=== PATIENT | female | born 1975 | race Caucasian/White ===

== ENCOUNTER → 2017-10-05 10:50 | Outpatient (REF) | payer BC, SELFPAY ==
[2017-10-06 17:25] LABS: Total Fat/24 Hr 9 g/24 h (2 - 7)
[2017-10-13 03:26] LABS: Pancreatic Elastase, F >500 mcg/g
== END ==
LOC: LBN 10:50
PROVIDERS: PCP Nurse Practitioner Family; Visit Provider Nurse Practitioner Family
DX: R19.5 Other fecal abnormalities (principal)
CPT/HCPCS: 82710

== ENCOUNTER 2017-10-15 15:30 | Outpatient (RCR) | payer BC, SELFPAY ==
--- NOTE | 2017-10-10 13:10 | IE_ITS ---
Date: 10/10/17 Referring: Daisha Benton MD M.D. Diagnosis: (R) leg pain P.T. 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 SUBJECTIVE: History of Present Illness: Reena complains of (R) lateral lower leg pain occurring with running and post running. Otherwise, all functional activities and movements are WNL, and non symptom provoking. Symptoms have been occurring for about 3-4 weeks, she does not recall any traumatic onset. She took a two week break from running, but upon return her symptoms immediately presented. She explains pain as an excruciating pain along the (R) lateral lower leg with running only for a few hours post running, and then dissipates. Character of pain is described as a deep ache at times, deep inside of her leg. She runs up to 3 miles at a time, she does question if she has a leg length discrepancy, she always noticed that she had one pant leg a little bit shorter than the other , and she wonders if this can be contributing. Pain Ratin-7/10 with running otherwise 0/10. Pain Location: (R) lower lateral leg along the peroneal region. Prior Level of Function: WNL Current Level of Function: WNL with the exception of pain with running activity. 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 Comorbidities: Anxiety, hx of a (R) fx femur 1985 as a child. Falls in the last year: __X__ No ____Yes - How many? ____ - (if over 2, balance SM needs to be completed) Reported hospitalizations in the last year - __X__ No ____ Yes - Dates of admission/reason: Medications: Flagyl and Klonopin PRN Quality of Life: __X__ Good Standardized Measures: LEFS score: __33% Disability__ OBJECTIVE: Posture: In standing-has elevation of the ilium compared to the (L) with mild excessive (R) toe out compared to the (L). Compensatory (R) knee flexion to accommodate to ilium asymmetry. Non weightbearing elevation of the (R) malleoli , knee and ASIS. Post tx she had symmetry in non weightbearing and weightbearing position. Otherwise no obvious postural deformities. Observation: (behavior, atrophy, skin color, etc.) Unremarkable. Gait: WNL, toe and heel walk WNL Palpation: Non tender through the lumbopelvic femoral region or the (R) LE throughout any structures with focus of lateral leg. Edema: None Girth measurements: Symmetrical throughout LE's upon visual observation. ROM: (B) ankles and knees are WNL, non irritable. (R) hip IR 30* ER 60* Flexion 130* Abduction 30* Extension 5* (L) hip IR 45*/50* ER 60* Hip flexion 130* Abduction 30-40* Extension 10* Lumbar spine WNL throughout and no pain and non symptomatic Strength: Grossly 5/5 throughout (B) LEs with the exception of (R) hip IR, and ER at a 4+/5 compared to the (L) with a 5/5 with postural religious HRUSKA testing. She demonstrates (L) side lying level 1, (R) side lying level 1, (L) side lying level 2, with visual struggle with (R) IR and adduction. Patient also appreciates this. She also looses core control in this position. (L) glute 4/5, (R) is 5/5. Neuro: WNL LE screen. Balance: WNL Special Tests: SLR R 70 degrees, R 90 degrees due to hamstring drawing, (-) SI gapping, squish, (-) peroneal Tinel's. Treatment: IE: X [id number] Patient Education: Develop and review HEP as discussed below. X Neuro Re-education - ([id number]): Due to findings of HRUSKA indicating weakness of R adductor, internal rotators and L glut proceed with neuro re-ed facilitation with following exercises: 1: Hook lying, postural religious L leg shift for lengthening of L side, shortening of the R to facilitate L glut med, and medial hamstring. 2: R sidelying, L clam for glut med facilitation. 3: R sidelying reverse clams R adductor and IR facilitation. These exercises are written up for patient (see copy scanned EMR) Direct treatment time: 65 mins Total treatment time: 65 mins ASSESSMENT: Patient is a 42-year-old female, referred for PT services with the diagnosis of R leg pain. Patient presents with clinical signs and symptoms consistent with myokinematic instability/dysfunction of the lumbopelvic femoral region, particularly with poor facilitation of R adductor, internal rotation and L glut allowing for biomechanical strain to the R peroneals with running activities, as demonstrated by the following impairment level findings: Poor body awareness of her intrinsic core musculature, weakness of her R adductor, medial hamstring and L glut contributing to femoral, pelvic malalignment and compensatory leg length discrepancy. Impairments are contributing to the following functional limitations:Pain with running due to over facilitation of peroneals and poor biomechanical malalignment through the R LE. Patient is assessed as: __x__ Low 97366 ____ Moderate 27671 ____ High 51999 complexity, based on the following: History: (list): None See comorbidities and social history. Examination: (list): X See above for functional limitations and impairments. Presentation: Stable . X Evolving Unstable Decision-Making: Low complexity X Moderate complexity High complexity % Disability based on LEFS 33% __x__ Patient requires skilled PT intervention to remediate the above functional limitations to return to: __x__ Premorbid level of function Prognosis: ____ Excellent __x__ Good ____ Fair ____ Poor STG: __4__ weeks. 1: Patient able to run up to 3 miles without pain exceeding a 3/10. LTG: __8__ weeks. 1: Return to premorbid level of function. PLAN: Patient to be seen 2 x per week, for 8 weeks, weaning frequency as patient develops independent performance of her myokinematic strengthening program, and has symptom reduction. Treatment to include: Neuromuscular re-education for myokinematic lumbopelvic strengthening for primary facilitation of R adductors, medial hamstring and L glut. Utilization of heel lift if she fails to myokinematic efforts. Manual therapy for R posterior capsule stretching, and hamstring stretching on the R side as appropriate to assist with symmetry of the pelvis. Thank you for this referral. Please do not hesitate to contact me with any questions or concerns regarding this patient's plan of care.
--- NOTE | 2017-10-15 11:22 | PTTR_ITS ---
DATE: 10/15/17 OBJECTIVE: Therapeutic procedures ([id number]).Todays session consisted of pt completing postural amish exercises with focus on (L) glute strengthening and (R) adductor and medial hamstring strengthening. Please see flow sheet for specifics. I also checked pt alignment which before hand was seemed fairly aligned but after completing exercises was some what off so I completed the figure four stretching and that seemed to help pt be a bit more into alignment. Direct treatment time: 20 minutes Total treatment time: 20 minutes
== END 2017-10-19 23:59 | disposition home or self-care (01) ==
LOC: PT 15:30
PROVIDERS: PCP Nurse Practitioner Family; Referring Provider Family Medicine; Visit Provider Family Medicine
DX: M79.651 Pain in right thigh (principal); M79.89 Other specified soft tissue disorders
CPT/HCPCS: 97110; 97112; 97161

== ENCOUNTER 2019-02-04 02:32 | Outpatient (CLI) | payer BC, SELFPAY ==
--- NOTE | 2019-02-04 16:39 | DI.MAMMO_ITS ---
EXAM: MG MAMMO SCREENING CLINICAL HISTORY: SCREENING Z12.39, FAMILY HX BREAST CANCER Z80.3. TECHNIQUE: Full field digital CC and MLO mammographic images were obtained with 3D tomosynthesis and utilizing computer aided detection (CAD). COMPARISON: 2014 AND 2016 FINDINGS: Breast Density - Category D - Extremely dense Masses/Architectural Distortion: None seen. Microcalcifications: No suspicious pleomorphic-type calcifications are seen. Skin Thickening/Nipple Retraction: None. Axilla: Unremarkable. IMPRESSION: 1. BI-RADS category 1, negative. No significant interval change with no specific features of maligna ncy noted. 2. Unless there is more urgent need, screening mammography is recommended, as per [employer] guidelines. BI-RADS Cat 1 - Negative Breast Density - Category D - Extremely dense The mammogram demonstrates the patient's breast tissue is dense. Dense breast tissue is very common a nd is not abnormal but dense breast tissue can make it harder to find cancer on a mammogram. Also, de nse breast tissue may increase their breast cancer risk. This information about the result of the [facility] mogram report was provided to the patient to raise their awareness. Use this report when you speak wi th the patient about their risks for breast cancer, which includes their family history. At that time , you may recommend for more screening tests (Ultrasound or MRI) as they might be useful based on the ir risk. A negative radiographic report should not delay biopsy if a dominant or clinically suspicious mass is present. Up to ten percent of cancers are not identified on mammography. A negative report may reinforce clinical impression. Adenosis and dense breasts may obscure an underlying neoplasm. False positive reports average 6 to 10%. A negative radiographic report should not delay biopsy if a dominant or clinically suspicious mass is present. Up to ten percent of cancers are not identified on mammography. A negative report may reinforce clinical impression. Adenosis and dense breasts may obscure an underlying neoplasm. False positive reports average 6 to 10%. Patient will receive a letter notifying them of these results.
== END 2019-02-04 02:52 ==
PROVIDERS: PCP Nurse Practitioner Family; Visit Provider Nurse Practitioner Family
DX: Z12.31 Encounter for screening mammogram for malignant neoplasm of breast (principal); Z80.3 Family history of malignant neoplasm of breast
CPT/HCPCS: 77063; 77067

== ENCOUNTER 2019-02-21 10:12 | Outpatient (REF) | payer BC, SELFPAY ==
[2019-02-21 13:17] LABS: C-Reactive Protein < 0.05 mg/dL (0.0-0.3)
[2019-02-21 15:19] LABS: ESR 7 mm/hr (0-20)
[2019-02-24 10:11] LABS: Cyclic Citrullinated Peptide <2.5 U/mL (<5.0)
[2019-02-24 15:15] LABS: ANA Interpretation Negative (Negative)
== END 2019-02-21 10:32 ==
LOC: NCHCN 10:12
PROVIDERS: PCP Nurse Practitioner Family; Visit Provider Nurse Practitioner Family
DX: M25.561 Pain in right knee (principal); M54.2 Cervicalgia; M54.5 Low back pain; K30 Functional dyspepsia; I95.9 Hypotension, unspecified; R42 Dizziness and giddiness
CPT/HCPCS: 85652; 86200; 86038; 86140; 86431

== ENCOUNTER 2019-02-24 01:28 | Outpatient (CLI) | payer BC, SELFPAY ==
--- NOTE | 2019-02-24 15:38 | DI.US_ITS ---
EXAM: US PELVIS TRANSVAGINAL CLINICAL HISTORY: PT REPORTS BLEEDING BETWEEN PERIODS, HX CERVICAL POLYPS TECHNIQUE: Ultrasound performed using standard protocol. Transabdominal and transvaginal exams wer e performed. COMPARISON: No exams were available for comparison FINDINGS: The uterus measures 8.6 x 3.9 x 5.3 cm. There are a few endometrial calcifications superiorly. Th e endometrial stripe measures 5 millimeters in thickness. No fluid is seen within the endometrial c avity. No irregularity is visible. No fibroids are seen. Small follicles are noted on both ovaries . There is a trace amount of free fluid in the cul-de-sac, likely physiologic. The kidneys are unre markable. IMPRESSION: Normal endometrial thickness. Endometrial calcifications.
== END 2019-02-24 01:48 ==
PROVIDERS: PCP Nurse Practitioner Family; Visit Provider Nurse Practitioner Women's Health
DX: N92.5 Other specified irregular menstruation (principal); N85.8 Other specified noninflammatory disorders of uterus
CPT/HCPCS: 76830; 76856

== ENCOUNTER 2019-03-24 08:24 | Outpatient (CLI) | payer BC, SELFPAY ==
--- NOTE | 2019-03-24 08:35 | DI.RAD_ITS ---
EXAM: XR KNEE RT 3V AP,LAT,KARLA CLINICAL HISTORY: R knee pain. TECHNIQUE: 2D digital imaging was performed. COMPARISON: No exams were available for comparison FINDINGS: BONES: No acute fracture is present. No bony destructive lesion is seen. JOINTS: The knee is normally aligned. No joint effusion is seen. SOFT TISSUE: Normal. IMPRESSION: Unremarkable radiographs of the right knee.
== END 2019-03-24 08:44 ==
PROVIDERS: PCP Nurse Practitioner Family; Visit Provider Physician Assistant
DX: M25.561 Pain in right knee (principal)
CPT/HCPCS: 73562

== ENCOUNTER 2019-09-10 02:24 | Outpatient (CLI) | payer BC, SELFPAY ==
--- NOTE | 2019-09-10 06:45 | DI.MRI_ITS ---
EXAM: MR LOWER JOINT RT WO CLINICAL HISTORY: knee PAIN, INTERNAL DERANGEMENT, M23.91. TECHNIQUE: Multiplanar multisequence MRI was performed. COMPARISON: CR XR KNEE RT 3V AP,LAT,KARLA from 03/24/2019 FINDINGS: BONES: There is no fracture or contusion pattern. JOINTS: There is hyperintense signal seen in the articular cartilage of the patella with hyperintense signal seen in the underlying subchondral bone. Small amount of fluid within the joint space. TENDONS: Extensor mechanism: Unremarkable. Medial retinaculum: Unremarkable. Lateral retinaculum: Unremarkable. Popliteus: Unremarkable. MUSCLES: Unremarkable. MENISCI: The medial meniscus is unremarkable. The lateral meniscus is unremarkable. SOFT TISSUES: Unremarkable. LIGAMENTS: Anterior Cruciate: Unremarkable. Posterior Cruciate: Unremarkable. Medial Collateral:Unremarkable. Lateral Collateral: Unremarkable. OTHER: IMPRESSION: 1. Findings of chondromalacia patella. 2. No evidence of a meniscal or ligament tear. DATA REPOSITORY:
== END 2019-09-10 02:44 ==
PROVIDERS: PCP Nurse Practitioner Family; Visit Provider Student in an Organized Health Care Education/Training Program
DX: M23.91 Unspecified internal derangement of right knee (principal); M25.561 Pain in right knee; M22.41 Chondromalacia patellae, right knee
CPT/HCPCS: 73721

== ENCOUNTER 2019-11-21 04:40 | Outpatient (CLI) | payer BC, SELFPAY ==
--- NOTE | 2019-11-21 | DI.MRI_ITS ---
EXAM: MR BRAIN WO/W CLINICAL HISTORY: MASS OF SKULL,M89.8X8. TECHNIQUE: Multiplanar multisequence MRI of the brain was performed. Thin T1 and fat-suppressed T2 axial, coronal and sagittal sequences as well as pre and post gadolinium fat-suppressed T1 weighted i mages were performed through the frontal region for evaluation of the previously noted skull lesion. CONTRAST MATERIAL: IV Contrast: 12 ML of Dotarem contrast administered. COMPARISON: CT HEAD-WITH/WITHOUT CONTRAST from 10/03/2019 FINDINGS: VENTRICLES AND EXTRA AXIAL SPACES: Normal in size and morphology for the patient's age. HEMORRHAGE: None. CEREBRAL PARENCHYMA: No focus of restricted diffusion to suggest acute infarct. No space-occupying le feliciano identified. No white matter changes. MIDLINE SHIFT: None. BRAINSTEM/CEREBELLUM: Normal. CALVARIUM: There is a 10 x 5 x 8 millimeter circumscribed lesion in the left frontal skull correspon ding to the lesion seen on the previous CT. It is intermediate signal on T1 weighted images and high signal on T2 weighted images. There is slightly heterogeneous signal within the lesion. There is e nhancement following IV gadolinium. ENHANCEMENT: No suspicious enhancement identified in the brain or meninges.. VISUALIZED PARANASAL SINUSES/MASTOIDS: Clear. OTHER FINDINGS: Orbits and pituitary within normal limits. Vascular flow voids are intact. IMPRESSION: 10 millimeter circumscribed enhancing lesion in the left frontal skull could represent a hemangioma, histiocytosis, plasmacytoma or metastatic lesion. DATA REPOSITORY:
[2019-11-21] MEDS: Normal Saline Flush 10 ML SYR IVP (10:05)
[2019-11-21] MEDS: Gadoterate meglumine 20 ML VIAL 12 ML IVP (10:07)
== END 2019-11-21 05:00 ==
PROVIDERS: PCP Nurse Practitioner Family; Visit Provider Neurological Surgery
DX: R22.0 Localized swelling, mass and lump, head (principal)
CPT/HCPCS: 70553

== ENCOUNTER 2020-02-14 15:07 | Emergency (ER) | payer BC, SELFPAY ==
[2020-02-14 15:12] VITALS: BP 106/82; PULSE 60; RESP 16; TEMP 36.5; O2SAT 100
--- NOTE | 2020-02-14 15:32 | ED.GENADUL_ITS ---
Discharge Plan Disposition Patient Disposition: HOME Condition: Good Discharge Details Clinical Impression: Abdominal discomfort Primary Care Provider: Tanna Muñiz ED Provider: Palak Norris Home Meds and New Rx's Prescriptions: New ondansetron 4 mg tablet,disintegrating 4 mg PO Q6H PRN (Reason: nausea and vomiting) Qty: 10 RF: 0 Continued clonazepam [Klonopin] 0.5 mg tablet 0.5 mg PO DAILY PRNRF: 0 Discharge Instructions Instructions: Abdominal Pain (ED) Additional Instructions: Your labs are reassuring today. Please encourage water intake. Please continue to walk frequently. You may continue with Gas-X as needed for symptomatic management. If you have any recurrence of your nausea and/or vomiting you may use the Zofran as prescribed. 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 If you develop fever/chills, increased pain, inability stay hydrated or the new/worsening symptoms please seek care urgently once again. 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 is slightly worse than her baseline and that began last night. She currently denies any nausea. Clinically she appears well, nontoxic. Abdomen is soft, nonsurgical throughout. She does report subjective discomfort minimally throughout. There is no guarding, rigidity or rebound. She is afebrile. Differential includes but not excluded to colitis, appendicitis, UTI, , biliary colic, pancreatitis, exacerbation of her chronic symptoms, etc. Will obtain IV access, give IV fluids, obtain routine laboratory values and reassess. If laboratory values are abnormal then potential CT imaging could be pursued however reflexively she does not have a central abdominal examination. I am signing this patient out to my colleague JASON Norris at 1600. Patient has been in the ER for approximately 45 minutes. They are establishing IV access now. IV fluid and laboratory values have not been completed at time of discharge. Medical Records Medical records reviewed: Yes I reviewed the patient's medical records. <JASON Reynaga - Last Filed: 02/14/20 16:56> Care transition myself from Augusto Segovia PA-C. Please see his initial note regarding presentation and exam and history. In brief, patient is a pleasant 45-year-old female has a history of bacterial overgrowth of her gut. 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 Presents today with flare of her symptoms. She reports that she has had multiple of these historically but this 1 seems to be worse than they have previously. No focal pain. No change in bowel habits. Has had some intermittent nausea but no vomiting. Labs reviewed. No significant abnormality. Discussed this with the patient. Patient I discussed the potential diagnoses. As this does seem to be very ester lar to when she has had flares associated with her bacterial overgrowth historically, this is likely the underlying diagnosis is again. I do not see any evidence to suggest a surgical abdomen. No evidence to suggest appendicitis, cholecystitis, diverticulitis, lipase is normal. Patient has been having normal bowel movements, history is not suggestive of obstruction. Patient reports that she can intermittently have nausea, will prescribe Zofran to be used as needed at home. She does not want any nausea medication now. We will give IV Toradol prior to her departure to help with some of her abdominal discomfort. She reports that she has been using simethicone to help with symptomatic management and states this is can help some degree. Patient discussed return precautions. She will contact the gastroenterology on Sunday to see if she can move her appointment up or get on the waiting list. Return precautions were discussed. All of her questions and concerns were addressed and she is in agreement this plan. HPI <JASON Merino - Last Filed: 02/15/20 08:06> General Mode of arrival: ambulatory . Date/Time Provider Initiated Documentation: 02/14/20 15:22 . Limitations to Documentation: no limitations . Information obtained by: patient . 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 She states that she occasionally has abdominal bloating, feels gassy, alternates between diarrhea and/or constipation. Today she reports that her pain just seems to be slightly worse and different in nature. This began last night and is associate with mild nausea. She feels as though it is slightly worse after eating. She denies any fever, recent travel, bad food exposure, sick contacts, chest pain, shortness of breath, vomiting, black tarry stools or bright red blood in her stools. Denies vaginal bleeding or discharge, dysuria or hematuria. She did try [id number] medication without relief of her symptoms. She denies previous abdominal surgeries. She reports that she had a normal bowel movement this morning. Related Data Home Medications Medication Instructions Recorded Confirmed clonazepam 0.5 mg tablet 0.5 mg PO DAILY PRN 09/25/19 02/14/20 ondansetron 4 mg PO Q6H PRN #10 tab 02/14/20 Previous Rx's Medication Instructions Recorded ondansetron 4 mg PO Q6H PRN #10 tab 02/14/20 Allergies Allergy/AdvReac Type Severity Reaction Status Date / Time No Known Allergies Allergy Verified 09/25/19 10:02 General Stated Complaint: Abd Prob SANJUANA: 3 Review of Systems <JASON Merino - Last Filed: 02/15/20 08:06> Constitutional Constitutional: Denies fatigue, Denies fever(s) and Denies headache(s) ENT Ears, Nose, Mouth, and Throat: Denies headache(s) and Denies neck pain Cardiovascular Cardiovascular: Denies chest pain and Denies dyspnea Respiratory Respiratory: Denies cough and Denies dyspnea Gastrointestinal Gastrointestinal: Reports abdominal pain, Denies melena, Denies hematochezia, Reports constipation, Reports diarrhea, Reports nausea and Denies vomiting Genitourinary Genitourinary: Denies abnormal vaginal bleeding, Denies hematuria, Denies dysuria and Denies vaginal discharge Musculoskeletal Musculoskeletal: Reports back pain (Typically associated with her abdominal pain) and Denies neck pain Integumentary/Breasts Skin/Breast: Denies rash Neurologic Neurologic: Denies headache(s) Endocrine Endocrine: Denies fatigue PFS <JASON Merino - Last Filed: 02/15/20 08:06> Social History Smoking/Tobacco Use Status: Never Smoking risk assessment performed?: Yes Alcohol Intake: never Drug use: Never Substance use type: does not use Current gender identity: female Do you feel safe at home: Yes Do you feel safe in your relationship?: Yes Exam <JASON Merino - Last Filed: 02/15/20 08:06> Const General: cooperative, healthy appearing, comfortable and no acute distress Orientation: alert and awake [facility] [place] Head: normal to inspection, normocephalic and atraumatic Eyes General: appearance normal, both eyes and all related structures Conjunctivae: conjunctivae normal Sclera: sclerae normal Neck Neck: normal visual inspection, full ROM, no meningeal signs, trachea midline and supple Resp Effort & Inspection: normal respiratory effort and able to speak in complete sentences Auscultation: clear to auscultation bilaterally Cardio Rate: regular rate Rhythm: regular rhythm GI Inspection: normal to inspection Palpation: soft, not firm, no guarding, no pulsatile masses and tender (Diffuse minimal throughout) with no rebound tenderness Auscultation: normal bowel sounds Back/Spine/Pelvis Back: No back tenderness Skin General skin exam: no rashes or lesions noted Neuro General: patient alert, patient awake, moves all extremities and no focal motor deficits Cognition: normal cognition Speech: speech normal Gait: normal gait Motor: muscle tone normal throughout Sensory Exam: no sensory deficits noted Extrem General: normal to inspection and full ROM Psych Appearance: grossly normal Mental Status: mental status grossly normal Course <JASON Merino - Last Filed: 02/15/20 08:06> Vital Signs Vital signs: Vital Signs Temperature 36.5 C 02/14/20 15:12 Pulse 60 02/14/20 15:12 Respiratory Rate 16 02/14/20 15:12 Blood Pressure 106/82 02/14/20 15:12 Pulse Oximetry 100 02/14/20 15:12 Temperature 36.5 C 02/14/20 15:12 Temperature Source Skin 02/14/20 15:12 Pulse 60 02/14/20 15:12 Respiratory Rate 16 02/14/20 15:12 Respiratory Effort 02/14/20 15:17 Blood Pressure 106/82 02/14/20 15:12 Blood Pressure Position Sitting 02/14/20 15:12 Pulse Oximetry 100 02/14/20 15:12 Oxygen Delivery Method Room Air 02/14/20 15:12 Oxygen Flow Rate 0 02/14/20 15:12 Pain Level 8 02/14/20 15:12 Sign Out <JASON Merino - Last Filed: 02/15/20 08:06> Sign Out Data: Sign Out Comment: Currently obtaining IV access, getting IV fluid, pending laboratory values for abdominal pain, nausea, gassy feeling, that is slightly worse than her baseline. This began yesterday. Last updated by Jorge Segovia PA at 02/14/20 15:58
[2020-02-14] MEDS: Normal Saline 1,000 ML 1000 ML IV (15:59)
[2020-02-14 16:01] LABS: Abs Immature Grans 0.02 10^3/uL (0.0-0.06); Absolute Basophil Count 0.03 10^3/uL (0.0-0.2); Absolute Eosinophil Count 0.07 10^3/uL (0.0-0.7); Absolute Lymphocyte Count 1.35 10^3/uL (1.2-3.4); Absolute Monocyte Count 0.76 10^3/uL (0.1-0.8); Absolute Neutrophil Count 6.47 10^3/uL (1.2-6.7); Basophils % 0.3; Eosinophils % 0.8; HCT 38.1 % (36.0-46.0); HGB 12.5 g/dL (11.2-15.7); Immature Grans % 0.2; Lymphocytes % 15.5; MCH 31.3 pg (27.0-33.0); MCHC 32.8 % (32.0-36.0); MCV 95.5 fL (80-95); MPV 11.4 fL (8.0-11.0); Monocytes % 8.7; Neutrophils % 74.5; Nucleated RBC 0 %; Platelet Count 150 10^3/uL (130-400); RBC 3.99 10^6/uL (3.93-5.22); RDW 12.3 % (11.7-14.6)
[2020-02-14 16:09] LABS: Bilirubin Negative (Negative); Blood Negative (Negative); Clarity Clear (Clear); Glucose Negative (Negative); Ketones Negative (Negative); Leukocyte Esterase Negative (Negative); Nitrite Negative (Negative); Urobilinogen 0.2 EU/dL (Up TO 0.2)
[2020-02-14 16:11] LABS: ALT 16 U/L (14-59); AST 11 U/L (15-37); Albumin 3.6 g/dL (3.4-5.0); Alkaline Phosphatase 43 U/L (46-116); Anion Gap 4.4 mmol/L (3-11); BUN 13 mg/dL (7-18); Bilirubin, Total 0.3 mg/dL (0.2-1.0); CO2 29.6 mmol/L (21.0-32.0); CREATININE 0.95 mg/dL (0.55-1.02); Calcium 8.8 mg/dL (8.5-10.1); Chloride 104 mmol/L (98-107); Glucose 112 mg/dL (74-106); Lipase 87 U/L (73-393); Potassium 3.6 mmol/L (3.5-5.1); Sodium 138 mmol/L (136-145); Total Protein 6.7 g/dL (6.4-8.2)
[2020-02-14] MEDS: Ketorolac 30 MG/ML VIAL IVP (16:41)
[2020-02-14 16:53] VITALS: BP 98/61; PULSE 60; RESP 18; TEMP 37.1; O2SAT 100
[2020-02-14] MEDS: Ondansetron 4 MG/2 ML VIAL (16:59)
[2020-02-14 17:05] VITALS: BP 98/61; PULSE 60; RESP 18; TEMP 37.1; O2SAT 100
== END 2020-02-14 17:09 | disposition home or self-care (01) ==
PROVIDERS: Physician Assistant; Emergency Provider Physician Assistant; PCP Nurse Practitioner Family
DX: R10.84 Generalized abdominal pain (principal); Z87.19 Personal history of other diseases of the digestive system; R11.0 Nausea
CPT/HCPCS: 80053; 81025; 83690; 96361; 96374; 99284; 81003; 85025; 99283; J1885; J2405

== ENCOUNTER 2020-03-23 18:38 | Outpatient (CLI) | payer BC, SELFPAY ==
--- NOTE | 2020-03-23 14:15 | DI.RAD_ITS ---
EXAM: XR ABDOMEN FLAT UPRIGHT INDICATION: BLOATING, GAS, CONSTIPATION. COMPARISON: No exams were available for comparison TECHNIQUE: 2D digital imaging was performed. FINDINGS: The visualized lung bases are clear. The bowel gas pattern is nonspecific. No evidence of obstructi on. There is a moderate amount of stool seen throughout the colon. Note is made of an IUD in the pe lvis. No evidence of pneumoperitoneum. IMPRESSION: Moderate amount of retained stool in the colon. No evidence of bowel obstruction. DATA REPOSITORY: RADIATION DOSE DELIVERED:
== END 2020-03-23 18:39 | disposition home or self-care (01) ==
LOC: DI 18:39
PROVIDERS: PCP Nurse Practitioner Family; Visit Provider Internal Medicine Gastroenterology
DX: K59.00 Constipation, unspecified (principal); R14.0 Abdominal distension (gaseous)
CPT/HCPCS: 74019

== ENCOUNTER 2020-03-25 08:19 | Outpatient (REF) | payer BC, SELFPAY ==
[2020-03-26 18:54] LABS: Calprotectin <15.6 mcg/g
[2020-03-26 20:02] LABS: Pancreatic Elastase, F 160 mcg/g
== END 2020-03-25 08:20 | disposition home or self-care (01) ==
LOC: LBN 08:19
PROVIDERS: PCP Nurse Practitioner Family; Visit Provider Internal Medicine Gastroenterology
DX: R10.9 Unspecified abdominal pain (principal); R14.0 Abdominal distension (gaseous); R19.5 Other fecal abnormalities
CPT/HCPCS: 82656; 82710; 83993

== ENCOUNTER 2020-07-22 16:48 | Emergency (ER) | payer BC, SELFPAY ==
[2020-07-22 16:53] VITALS: BP 123/78; PULSE 55; RESP 16; TEMP 36.2; O2SAT 100
--- NOTE | 2020-07-22 17:03 | ED.GENADUL_ITS ---
Discharge Plan Disposition Patient Disposition: HOME Condition: Improving Discharge Details Clinical Impression: Abdominal pain Primary Care Provider: Tanna Muñiz ED Provider: Jorge Segovia Home Meds and New Rx's Prescriptions: Continued clonazepam [Klonopin] 0.5 mg tablet 0.5 mg PO DAILY PRNRF: 0 ondansetron 4 mg tablet,disintegrating 4 mg PO Q6H PRN (Reason: nausea and vomiting) Qty: 10 RF: 0 Discharge Instructions Instructions: Abdominal Pain (ED) Additional Instructions: Laboratory values reveal a slightly elevated white count but otherwise unremarkable for any obvious emergent process. We did discuss CT imaging but with your recent thorough work-up through your GI team, this was declined this evening. Please watch for new or worsening symptoms and return to the ER for any concerns. Please contact your GI specialist tomorrow to discuss your ongoing symptoms and need for outpatient reevaluation. Medical Decision Making 45-year-old female, history of anxiety, small intestine bacterial overgrowth, no previous abdominal surgeries, followed by GI. She reports both recent endoscopy and colonoscopy. She was prescribed 2 antibiotics and antidepressant but has not started them, plans to start them August 02. Reports flareup of her chronic abdominal pain. Clinically she appears well, nontoxic. Discussed options, will obtain IV access, give IV fluids, Zofran, Toradol. Will obtain routine laboratory values and urinalysis. Patient comfortable with this plan. Upon reevaluation patient reports that she is nearly asymptomatic after being medicated. Reports feeling much improved. Laboratory values reveal mild nonspecific leukocytosis of 13.59, electrolytes unremarkable. Creatinine 1.0 with a GFR 59.43. Calcium 8.3, total bili 0.1 AST 13 ALT 16 alk phosphatase 46, albumin 3.6 lipase 53 urinalysis reveals trace ketones otherwise unremarkable. Discussed laboratory values and work-up with patient. Again she feels dramatically better after being medicated. Discussed her mild nonspecific leukocytosis. She is afebrile, appears well, abdomen soft, nonsurgical. CT imaging of the abdomen pelvis offered but at this time declined. Patient reports that she feels well enough for discharge and will follow up with her GI specialty team. Encouraged to return to the ER for new or worsening symptoms. She will contemplate initiating the therapy recommended by her GI team sooner than the . Medical Records Medical records reviewed: Yes I reviewed the patient's medical records. Lab Data Lab results reviewed: Yes I reviewed the patient's lab results. Labs: Laboratory Tests Range/Units 07/22/20 07/22/20 07/22/20 17:30 17:40 17:40 WBC (4.4-10.8) 10^3/uL 13.59 H RBC (3.93-5.22) 10^6/uL 4.28 Hgb (11.2-15.7) g/dL 13.5 Hct (36.0-46.0) % 40.8 MCV (80-95) fL 95.3 H MCH (27.0-33.0) pg 31.5 MCHC (32.0-36.0) % 33.1 RDW (11.7-14.6) % 13.1 Plt Count (130-400) 10^3/uL 158 MPV (8.0-11.0) fL 12.1 H Immature Gran % 0.3 Neutrophils % 73.3 Lymphocytes % 19.5 Monocytes % 5.6 Eosinophils % 1.0 Basophils % 0.3 Nucleated RBC % % 0 Absolute Neutrophils (1.2-6.7) 10^3/uL 9.96 H Absolute Lymphocytes (1.2-3.4) 10^3/uL 2.65 Absolute Monocytes (0.1-0.8) 10^3/uL 0.76 Absolute Eosinophils (0.0-0.7) 10^3/uL 0.14 Absolute Basophils (0.0-0.2) 10^3/uL 0.04 Sodium Cancelled Potassium Cancelled Chloride Cancelled Carbon Dioxide Cancelled Anion Gap Cancelled BUN Cancelled Creatinine Cancelled Estimated GFR/1.73 m2 Cancelled Glucose Cancelled Calcium Cancelled Total Bilirubin Cancelled AST Cancelled ALT Cancelled Alkaline Phosphatase Cancelled Total Protein Cancelled Albumin Cancelled Lipase Cancelled Urine Color (Yellow) Yellow Urine Clarity (Clear) Sl cloudy Urine pH (5-8) 5.5 Ur Specific Mildred (1.005-1.025) 1.020 Urine Protein (Negative) mg/dL Negative Urine Ketones (Negative) mg/dL Trace H Urine Blood (Negative) Negative Urine Nitrite (Negative) Negative Urine Bilirubin (Negative) Negative Urine Urobilinogen (Up TO 0.2) EU/dL 0.2 Ur Leukocyte Esterase (Negative) Negative Urine Glucose (Negative) mg/dL Negative Range/Units 07/22/20 18:13 WBC (4.4-10.8) 10^3/uL RBC (3.93-5.22) 10^6/uL Hgb (11.2-15.7) g/dL Hct (36.0-46.0) % MCV (80-95) fL MCH (27.0-33.0) pg MCHC (32.0-36.0) % RDW (11.7-14.6) % Plt Count (130-400) 10^3/uL MPV (8.0-11.0) fL Immature Gran % Neutrophils % Lymphocytes % Monocytes % Eosinophils % Basophils % Nucleated RBC % % Absolute Neutrophils (1.2-6.7) 10^3/uL Absolute Lymphocytes (1.2-3.4) 10^3/uL Absolute Monocytes (0.1-0.8) 10^3/uL Absolute Eosinophils (0.0-0.7) 10^3/uL Absolute Basophils (0.0-0.2) 10^3/uL Sodium 139 Potassium 3.8 Chloride 104 Carbon Dioxide 27.8 Anion Gap 7.2 BUN 12 Creatinine 1.0 Estimated GFR/1.73 m2 59.43 Glucose 89 Calcium 8.3 L Total Bilirubin 0.5 AST 13 L ALT 16 Alkaline Phosphatase 46 Total Protein 6.6 Albumin 3.6 Lipase 53 Urine Color (Yellow) Urine Clarity (Clear) Urine pH (5-8) Ur Specific Mildred (1.005-1.025) Urine Protein (Negative) mg/dL Urine Ketones (Negative) mg/dL Urine Blood (Negative) Urine Nitrite (Negative) Urine Bilirubin (Negative) Urine Urobilinogen (Up TO 0.2) EU/dL Ur Leukocyte Esterase (Negative) Urine Glucose (Negative) mg/dL HPI General Mode of arrival: ambulatory . Date/Time Provider Initiated Documentation: 07/22/20 16:51 . Limitations to Documentation: no limitations . Information obtained by: patient . HPI Narrative: This is a 45-year-old female who reports history of anxiety, small intestine bacterial overgrowth syndrome, who is being evaluated by a GI specialist. She reports that she has been prescribed 2 antibiotics and an antidepressant however she does not plan to start these until August 02 when she is on vacation. She reports chronic abdominal pain, bloating, nausea but reports that her symptoms are worse than baseline. This occurred this afternoon after eating lunch, tunafish sandwich. She reports the pain is all over, crampy, feeling gassy. She reports the pain is associated with a small amount of radiation to her lower back which is not atypical as well as pain to both of her hips. She denies fever, recent travel, bad food exposure, sick contacts, chest pain, shortness of breath, fever, vomiting, dysuria, hematuria, vaginal bleeding or discharge, diarrhea or constipation. Reports normal bowel movement over the past 24 hours. She reports that this feels typical of her her flareups. She has not taken any medication for symptomatic control. Related Data Home Medications Medication Instructions Recorded Confirmed clonazepam 0.5 mg tablet 0.5 mg PO DAILY PRN 09/25/19 07/22/20 ondansetron 4 mg PO Q6H PRN #10 tab 02/14/20 07/22/20 Previous Rx's Medication Instructions Recorded ondansetron 4 mg PO Q6H PRN #10 tab 02/14/20 Allergies Allergy/AdvReac Type Severity Reaction Status Date / Time No Known Allergies Allergy Verified 07/22/20 17:03 General Stated Complaint: Abd Prob SANJUANA: 3 Review of Systems Constitutional Constitutional: Denies fatigue, Denies fever(s) and Denies headache(s) ENT Ears, Nose, Mouth, and Throat: Denies headache(s) and Denies neck pain Cardiovascular Cardiovascular: Denies chest pain and Denies dyspnea Respiratory Respiratory: Denies cough and Denies dyspnea Gastrointestinal Gastrointestinal: Reports abdominal pain, Reports bloating, Denies constipation, Denies diarrhea, Reports nausea and Denies vomiting Genitourinary Genitourinary: Denies dysuria Musculoskeletal Musculoskeletal: Reports back pain and Denies neck pain Integumentary/Breasts Skin/Breast: Denies erythema and Denies rash Neurologic Neurologic: Denies headache(s) Psychiatric Psychiatric: Reports anxiety Endocrine Endocrine: Denies fatigue [facility] Social History Smoking/Tobacco Use Status: Never Smoking risk assessment performed?: Yes Alcohol Intake: never Drug use: Never Substance use type: does not use Current gender identity: female Do you feel safe at home: Yes Do you feel safe in your relationship?: Yes Exam Const General: cooperative, healthy appearing, comfortable and no acute distress Orientation: alert and awake [facility] Head: normal to inspection, normocephalic and atraumatic Face and sinus: normal facial exam Mouth: moist mucous membranes Eyes General: appearance normal, both eyes and all related structures Conjunctivae: conjunctivae normal Neck Neck: normal visual inspection, full ROM, trachea midline and supple Resp Effort & Inspection: normal respiratory effort and able to speak in complete sentences Auscultation: clear to auscultation bilaterally Cardio Rate: regular rate Rhythm: regular rhythm GI Inspection: normal to inspection Palpation: soft, not firm, no guarding, no pulsatile masses and tender (Diffuse, mild.) with no rebound tenderness Auscultation: normal bowel sounds Back/Spine/Pelvis Back: no CVA tenderness and No back tenderness Skin General skin exam: no rashes or lesions noted Neuro General: patient alert, patient awake, moves all extremities and no focal motor deficits Cognition: normal cognition Speech: speech normal Gait: normal gait Sensory Exam: no sensory deficits noted Psych Appearance: grossly normal Mental Status: mental status grossly normal Course Vital Signs Vital signs: Vital Signs Temperature 36.2 C L 07/22/20 16:53 Pulse 55 L 07/22/20 16:53 Respiratory Rate 16 07/22/20 16:53 Blood Pressure 123/78 07/22/20 16:53 Pulse Oximetry 100 07/22/20 16:53 Temperature 36.2 C L 07/22/20 16:53 Temperature Source Skin 07/22/20 16:53 Pulse 55 L 07/22/20 16:53 Respiratory Rate 16 07/22/20 16:53 Respiratory Effort 07/22/20 16:53 Blood Pressure 123/78 07/22/20 16:53 Blood Pressure Position Sitting 07/22/20 16:53 Pulse Oximetry 100 07/22/20 16:53 Oxygen Delivery Method Room Air 07/22/20 16:53 Oxygen Flow Rate 0 07/22/20 16:53 Pain Level 9 07/22/20 16:53
[2020-07-22 17:36] LABS: Bilirubin Negative (Negative); Blood Negative (Negative); Clarity Sl Cloudy (Clear); Glucose Negative (Negative); Ketones Trace mg/dL (Negative); Leukocyte Esterase Negative (Negative); Nitrite Negative (Negative); Urobilinogen 0.2 EU/dL (Up TO 0.2); pH 5.5 (5-8)
[2020-07-22] MEDS: Ondansetron 4 MG/2 ML VIAL IVP (17:40)
[2020-07-22] MEDS: Ketorolac 30 MG/ML VIAL IVP (17:41)
[2020-07-22] MEDS: Normal Saline 1,000 ML 1000 ML IV (17:41)
[2020-07-22 17:50] LABS: Abs Immature Grans 0.04 10^3/uL (0.0-0.06); Absolute Basophil Count 0.04 10^3/uL (0.0-0.2); Absolute Eosinophil Count 0.14 10^3/uL (0.0-0.7); Absolute Lymphocyte Count 2.65 10^3/uL (1.2-3.4); Absolute Monocyte Count 0.76 10^3/uL (0.1-0.8); Absolute Neutrophil Count 9.96 10^3/uL (1.2-6.7); Basophils % 0.3; HCT 40.8 % (36.0-46.0); HGB 13.5 g/dL (11.2-15.7); Immature Grans % 0.3; Lymphocytes % 19.5; MCH 31.5 pg (27.0-33.0); MCHC 33.1 % (32.0-36.0); MCV 95.3 fL (80-95); MPV 12.1 fL (8.0-11.0); Monocytes % 5.6; Neutrophils % 73.3; Nucleated RBC 0 %; Platelet Count 158 10^3/uL (130-400); RBC 4.28 10^6/uL (3.93-5.22); RDW 13.1 % (11.7-14.6); RDW-SD 46.4 fL; WBC 13.59 10^3/uL (4.4-10.8)
[2020-07-22 18:34] LABS: ALT 16 U/L (14-59); AST 13 U/L (15-37); Albumin 3.6 g/dL (3.4-5.0); Alkaline Phosphatase 46 U/L (46-116); Anion Gap 7.2 mmol/L (3-11); BUN 12 mg/dL (7-18); Bilirubin, Total 0.5 mg/dL (0.2-1.0); CO2 27.8 mmol/L (21.0-32.0); Calcium 8.3 mg/dL (8.5-10.1); Chloride 104 mmol/L (98-107); Estimated GFR 59.43 (mL/min/1.73m2); Glucose 89 mg/dL (74-106); Lipase 53 U/L (73-393); Potassium 3.8 mmol/L (3.5-5.1); Sodium 139 mmol/L (136-145); Total Protein 6.6 g/dL (6.4-8.2)
[2020-07-22 19:32] VITALS: BP 104/64; PULSE 59; TEMP 36.6; O2SAT 98
== END 2020-07-22 19:42 | disposition home or self-care (01) ==
PROVIDERS: Emergency Provider Physician Assistant; PCP Nurse Practitioner Family
DX: R10.9 Unspecified abdominal pain (principal)
CPT/HCPCS: 36415; 80053; 81025; 83690; 96361; 96374; 96375; 99284; 81003; 85025; 99283; J1885; J2405

== ENCOUNTER 2020-08-04 00:41 | Outpatient (CLI) | payer BC, SELFPAY ==
--- NOTE | 2020-08-04 13:20 | DI.MAMMO_ITS ---
Exam(s) MAMMO SCREENING EXAM: MAMMO SCREENING CLINICAL HISTORY: SCREENING, Z12.39. TECHNIQUE: Bilateral full field digital CC and MLO mammographic images were obtained with 3D tomosyn thesis and utilizing computer aided detection (CAD). COMPARISON: Prior mammograms dating back to 2011, the most recent being January 2019. FINDINGS: The fibroglandular tissue pattern is again noted be dense, this decreasing the sensitivity of the deepika mogram for finding in underlying lesions. There are no new obvious spiculated masses. Benign microcalcifications are again noted including a microcalcification posteriorly in the left saul ast and microcalcifications posteriorly in the right breast was also remain stable. There are no new malignant-appearing microcalcification groups. There is no significant architectural distortion nor skin thickening-retraction. IMPRESSION: Dense bilateral fibroglandular tissue. Stable benign findings. No obvious radiographic evidence of malignancy. Given the density of this patient's fibroglandular tissue I feel that screening bilateral complete br east ultrasound should be performed. BI-RADS Category 2 - Benign Findings Breast Density - Category D - Extremely dense Breast density Category C or D implies that the patient has dense breast tissue. Dense breast tissue can make it harder to find cancer on a mammogram. Dense breast tissue is also associated with an incr eased risk of breast cancer. This information about the result of the mammogram report was provided to the patient to raise their awareness. Use this report when you speak with the patient about their risks for breast cancer, which includes their family history. At that time, you may recommend additional screening tests (Ultrasoun d or MRI) as these tests may add significant information. A negative radiographic report should not delay biopsy if a dominant or clinically suspicious mass is present. Up to ten percent of cancers are not identified on mammography. A negative report may reinforce clinical impression. Adenosis and dense breasts may obscure an underlying neoplasm. False positive reports average 6 to 10%. Patient will receive a letter notifying them of these results.
== END 2020-08-04 01:01 ==
PROVIDERS: PCP Nurse Practitioner Family; Visit Provider Family Medicine
DX: Z12.31 Encounter for screening mammogram for malignant neoplasm of breast (principal); R92.8 Other abnormal and inconclusive findings on diagnostic imaging of breast
CPT/HCPCS: 77063; 77067

== ENCOUNTER 2021-03-18 17:36 | Emergency (ER) | payer BC, SELFPAY ==
[2021-03-18 17:36] VITALS: BP 117/76; PULSE 66; RESP 14; TEMP 36.8; O2SAT 100
--- NOTE | 2021-03-18 19:00 | W.ED.GENAD ---
Discharge Plan Disposition Patient Disposition: HOME Condition: Stable Discharge Details Clinical Impression: Discoloration of skin of finger Primary Care Provider: Tanna Muñiz ED Provider: Joreg Segovia Home Meds and New Rx's Prescriptions: Continued clonazepam [Klonopin] 0.5 mg tablet 0.5 mg PO DAILY PRNRF: 0 hyoscyamine sulfate 0.125 mg tablet, sublingual 0.125 mg PO PRN PRNRF: 0 Discharge Instructions Additional Instructions: After using shared decision-making, we deferred obtaining CT imaging of your chest and arm this evening and instead are setting you up for a right upper extremity venous ultrasound on Sunday. Please take a full dose aspirin now until then. After your ultrasound you will return to the ER for ultrasound results. Please watch for new or worsening symptoms and return to the ER for any concerns. Lastly, I do recommend reaching out to your english as a second language instructor to discuss your ongoing symptoms in your right hand. Medical Decision Making 46-year-old female who reports intermittent altered color and sensation of her right hand, primarily third digit but occasionally her fifth digit which has been going on for at least a couple of years. She has talked with both her english as a second language instructor and primary care provider. Patient states that cold typically makes this worse and she places her hand in warm water and her symptoms typically improve. She was seen at the clinic today and sent to the ER for further evaluation. Based upon her HPI and examination, I have a low suspicion for an acute thrombus, micro embolism, etc. No evidence of cellulitis, obvious trauma, septic joint, etc. I do believe this is likely some sort of Raynaud's phenomena. Unfortunately I cannot obtain an ultrasound at this time. I discussed with the patient that this evening I can obtain IV access, routine screening blood work, and obtain a CTA of her chest and arm for further evaluation of her symptoms today. Patient tells me that she has a CT of her chest yearly given her thoracic aneurysm. She had a CT last fall and it was normal. She is hesitant to have additional radiation. Given her symptoms have been intermittent for a couple of years, her symptoms are much improved today when compared to a few days ago, we discussed options. She even showed me a photo of what her hand looked like a few days ago and there was much more impressive discoloration. She denies any chest pain, fever, shortness of breath, cough, etc. whatsoever. Plan is to obtain a right upper extremity venous ultrasound on Sunday and in the meantime she will take a full dose aspirin. Strict discharge and return precautions were provided. This documentation was generated using [employer] system, please disregard any oddities of phrase or misspellings. Medical Records Medical records reviewed: Yes I reviewed the patient's medical records. HPI General Mode of arrival: ambulatory. Date/Time Provider Initiated Documentation: 03/18/21 17:42. Limitations to Documentation: no limitations. Information obtained by: patient. HPI Narrative: This is a 46-year-old female, [id number], past medical history that includes RA anxiety, now on thoracic aneurysm, presenting to the ER for evaluation of right hand third finger discoloration. Patient states that she has had these types of symptoms on and off for years, has talked to both her primary care provider and her english as a second language instructor regarding this. Her english as a second language instructor felt like this is likely Raynaud's syndrome. Patient states that this episode seems to have lasted longer than usual. It began on Sunday, her right middle finger was discolored, purple like bruising. She states that discoloration is not usually very painful but there is an altered sensation feeling. The sensation spreads to her fifth digit as well. She feels as though the discoloration overall has much improved over the past couple of days and is now much more subtle. She was seen at the health clinic and sent to the ER for further evaluation. She denies any rash elsewhere on her body, recent illness or trauma, chest pain or shortness of breath. She denies the symptoms elsewhere on her body. She states that typically the cold does exacerbate her symptoms and often resolves when she puts her hand in warm water. Related Data Home Medications Medication Instructions Recorded Confirmed clonazepam 0.5 mg tablet 0.5 mg PO DAILY PRN 09/25/19 03/18/21 hyoscyamine sulfate 0.125 mg PO PRN PRN 03/18/21 03/18/21 Allergies Allergy/AdvReac Type Severity Reaction Status Date / Time No Known Allergies Allergy Verified 03/18/21 17:42 General Stated Complaint: Vascular SANJUANA: 3 Review of Systems Constitutional Constitutional: Denies fever(s), Denies headache(s) and Denies weakness ENT Ears, Nose, Mouth, and Throat: Denies headache(s) Cardiovascular Cardiovascular: Denies chest pain and Denies dyspnea Respiratory Respiratory: Denies cough and Denies dyspnea Gastrointestinal Gastrointestinal: Denies abdominal pain Musculoskeletal Musculoskeletal: Denies numbness and Reports tingling Integumentary/Breasts Skin/Breast: Reports change in pigmentation and Denies rash Neurologic Neurologic: Denies headache(s), Denies numbness, Reports tingling and Denies weakness Hematologic/Lymphatic Hematologic/Lymphatic: Denies easy bleeding and Denies easy bruising PFSH All Active Problems Abdominal pain (Acute) Discoloration of skin of finger (Acute) Chondromalacia patellae of right knee (Acute) Depo-Medrol injection: 09/25/2019 Patellar tendinitis, right knee (Acute) Internal derangement of right knee (Acute) Social History Smoking/Tobacco Use Status: Never Smoking risk assessment performed?: Yes Alcohol Intake: current Alcohol Intake frequency: 0-2 drinks per day Alcohol type: wine Drug use: Never Substance use type: does not use Current gender identity: female Do you feel safe at home: Yes Do you feel safe in your relationship?: Yes Exam Const General: cooperative, healthy appearing, comfortable and no acute distress Orientation: alert, awake and oriented x3 HENMT Head: normal to inspection, normocephalic and atraumatic Eyes General: appearance normal, both eyes and all related structures Conjunctivae: conjunctivae normal Neck Neck: normal visual inspection, trachea midline and supple Resp Effort & Inspection: normal respiratory effort and able to speak in complete sentences Cardio Rate: regular rate Rhythm: regular rhythm Skin Rashes: no rashes Neuro General: patient alert, patient awake, moves all extremities and no focal motor deficits Cognition: normal cognition Speech: speech normal Gait: normal gait Motor: muscle tone normal throughout Sensory Exam: no sensory deficits noted Extrem General: full ROM and capillary refill normal Hand/finger images: 1. There is mild, not circumferential, discoloration, minimal ecchymosis-erythema. 5/5 strength. Neuro, vascular, tendon intact. Capillary refill is normal, normal radial pulse. There is no tenderness, warmth. Skin is intact. There is no obvious swelling. Other: Negative [place] and Tinel's sign Psych Appearance: grossly normal Mental Status: mental status grossly normal Course Vital Signs Vital signs: Vital Signs Temperature 36.8 C 03/18/21 17:36 Pulse 66 03/18/21 17:36 Respiratory Rate 14 03/18/21 17:36 Blood Pressure 117/76 03/18/21 17:36 Pulse Oximetry 100 03/18/21 17:36 Temperature 36.8 C 03/18/21 17:36 Temperature Source Skin 03/18/21 17:36 Pulse 66 03/18/21 17:36 Respiratory Rate 14 03/18/21 17:36 Respiratory Effort Non-Labored 03/18/21 18:48 Respiratory Depth Normal 03/18/21 18:48 Respiratory Pattern Normal 03/18/21 18:48 Blood Pressure 117/76 03/18/21 17:36 Blood Pressure Position Sitting 03/18/21 17:36 Pulse Oximetry 100 03/18/21 17:36 Oxygen Delivery Method Room Air 03/18/21 17:36 Oxygen Flow Rate 0 03/18/21 17:36 Pain Level 2 03/18/21 17:36 PAWSS Have you Been Recently Intoxicated or Drunk Within the Last 30 days?: No Have you Ever Experienced Previous Episodes of Alcohol Withdrawal?: No Have you ever Experienced Withdrawal Seizures?: No Have you ever Experienced Delirium Tremens(DT)s?: No Have you ever undergone Alcohol Rehabilitation Treatment (i.e, inpt ot outpatient treatment programs)?: No Have you ever Experienced Blackouts?: No Have you ever Combined Alcohol with other Downers within the last 90 days?: No Have you ever Combined Alcohol with any other Substance of Abuse during the last 90 days?: No Positive Blood Alcohol level on Presentation? [PCS.BAL]: No Evidence of Increased Autonomic Activity (i.e. HR>120, tremor, sweating, agitation, nausea)?: No Result: 0
--- NOTE | 2021-03-18 19:14 | NUR.NOTE ---
[facility] requisition faxed for RUE ultrasound. Patient instructed to call for appt on sunday morning.Nursing Note:
[2021-03-18 19:20] VITALS: PULSE 66; RESP 14; O2SAT 100
== END 2021-03-18 19:15 | disposition home or self-care (01) ==
PROVIDERS: Emergency Provider Physician Assistant; PCP Nurse Practitioner Family
DX: M79.644 Pain in right finger(s) (principal); R23.8 Other skin changes
CPT/HCPCS: 99281; 99282

== ENCOUNTER 2021-03-21 10:35 | Emergency (ER) | payer BC, SELFPAY ==
[2021-03-21 10:41] VITALS: BP 119/83; PULSE 52; RESP 16; TEMP 36.5; O2SAT 100
--- NOTE | 2021-03-21 10:56 | W.ED.GENAD ---
Discharge Plan Disposition Patient Disposition: HOME Condition: Stable Discharge Details Clinical Impression: Discoloration of skin of finger Primary Care Provider: Tanna Muñiz ED Provider: Jorge Segovia Home Meds and New Rx's Prescriptions: Continued clonazepam [Klonopin] 0.5 mg tablet 0.5 mg PO DAILY PRNRF: 0 hyoscyamine sulfate 0.125 mg tablet, sublingual 0.125 mg PO PRN PRNRF: 0 Discharge Instructions Additional Instructions: Your ultrasound of your right upper extremity reveals no DVT. Please watch for new or worsening symptoms and return to the ER for any concerns. Otherwise please have your blood drawn as scheduled next week for your rheumatology team and follow-up with your bradley linebacker crewmember discuss your laboratory values and ongoing symptoms. Discharge Data Discharge Date/Time-TO BE ENTERED AT DEPARTURE: 03/21/21 11:22 Medical Decision Making 46-year-old female presents to the ER for ultrasound results. Ultrasound was obtained as an outpatient and the report from radiology is negative for DVT. Discussed ultrasound results with patient. Patient has outpatient blood draw through her bradley linebacker crewmember next week and then outpatient follow-up. Standard discharge and return precautions provided. Patient without additional questions or concerns and is comfortable discharge at this time This documentation was generated using [employer] system, please disregard any oddities of phrase or misspellings. Medical Records Medical records reviewed: Yes I reviewed the patient's medical records. Imaging Data Radiologic Study: Attestation: I personally reviewed and interpreted this imaging study as follows: Imaging: Ultrasound Radiologist's impression: Exam(s) US UPPER EXTREMITY VENOUS RT EXAM: US UPPER EXTREMITY VENOUS RT CLINICAL HISTORY: HAND PAIN, R 3RD FINGER SWELLING, DISCOLORED. TECHNIQUE: Ultrasound examination of the right upper extremity venous system(s) is performed using grayscale, color-flow, and spectral Doppler analysis. COMPARISON: No exams were available for comparison FINDINGS: The right internal jugular, axillary, subclavian, cephalic, basilic, brachial, radial, and ulnar veins are patent without evidence of thrombosis. IMPRESSION: No DVT. HPI General Mode of arrival: ambulatory. Date/Time Provider Initiated Documentation: 03/21/21 10:35. Limitations to Documentation: no limitations. Information obtained by: patient. HPI Narrative: This is a 46-year-old female presenting to the ER for results of an ultrasound. She was seen Luigi evening for ongoing right hand discoloration and tingling that has been intermittent for over 2 years. She is seen by bradley linebacker crewmember and thought to have Raynaud's syndrome. Saw at her health clinic and given her acute on chronic symptoms sent to the ER for full evaluation. I actually saw the patient on Sunday night, please refer to that note. In short patient declined chest CTA and arm CTA, opted to take full dose aspirin over the weekend and return this morning for an ultrasound. She reports that overall her symptoms are continuing to improve since Sunday but have not resolved completely. She has an outpatient blood draw next week from her bradley linebacker crewmember whom she has been following up with. Related Data Home Medications Medication Instructions Recorded Confirmed clonazepam 0.5 mg tablet 0.5 mg PO DAILY PRN 09/25/19 03/21/21 hyoscyamine sulfate 0.125 mg PO PRN PRN 03/18/21 03/21/21 Allergies Allergy/AdvReac Type Severity Reaction Status Date / Time No Known Allergies Allergy Verified 03/21/21 10:44 General Stated Complaint: Recheck SANJUANA: 5 Review of Systems Constitutional Constitutional: Denies fever(s) and Denies weakness Cardiovascular Cardiovascular: Denies chest pain and Denies dyspnea Respiratory Respiratory: Denies dyspnea Musculoskeletal Musculoskeletal: Denies deformity, Denies arthralgias, Denies numbness, Denies stiffness and Reports tingling Integumentary/Breasts Skin/Breast: Denies rash Neurologic Neurologic: Denies numbness, Reports tingling and Denies weakness PFSH All Active Problems Abdominal pain (Acute) Discoloration of skin of finger (Acute) Chondromalacia patellae of right knee (Acute) Depo-Medrol injection: 09/25/2019 Patellar tendinitis, right knee (Acute) Internal derangement of right knee (Acute) Social History Smoking/Tobacco Use Status: Never Smoking risk assessment performed?: Yes Alcohol Intake: current Alcohol Intake frequency: 0-2 drinks per day Alcohol type: wine Drug use: Never Substance use type: does not use Current gender identity: female Do you feel safe at home: Yes Do you feel safe in your relationship?: Yes Exam Const General: cooperative, healthy appearing, comfortable and no acute distress Orientation: alert and awake [facility] Head: normal to inspection, normocephalic and atraumatic Eyes Conjunctivae: conjunctivae normal Neck Neck: normal visual inspection, trachea midline and supple Resp Effort & Inspection: normal respiratory effort and able to speak in complete sentences Cardio Rate: regular rate Rhythm: regular rhythm Skin General skin exam: no rashes or lesions noted Neuro General: patient alert, patient awake, moves all extremities and no focal motor deficits Cognition: normal cognition Speech: speech normal Gait: normal gait Sensory Exam: no sensory deficits noted Extrem General: full ROM and capillary refill normal Other: There is mild, not circumferential, discoloration, minimal ecchymosis. I would say this appears improved when compared to her visit on Sunday peer 06/23 strength. Neuro, vascular, tendon intact. Capillary refill is normal, normal radial pulse. There is no tenderness, warmth. Skin is intact. There is no obvious swelling. Psych Appearance: grossly normal Mental Status: mental status grossly normal Course Vital Signs Vital signs: Vital Signs Temperature 36.5 C 03/21/21 10:41 Pulse 52 L 03/21/21 10:41 Respiratory Rate 16 03/21/21 10:41 Blood Pressure 119/83 03/21/21 10:41 Pulse Oximetry 100 03/21/21 10:41 Temperature 36.5 C 03/21/21 10:41 Temperature Source Skin 03/21/21 10:41 Pulse 52 L 03/21/21 10:41 Respiratory Rate 16 03/21/21 10:41 Respiratory Effort 03/21/21 10:41 Blood Pressure 119/83 03/21/21 10:41 Blood Pressure Position Sitting 03/21/21 10:41 Pulse Oximetry 100 03/21/21 10:41 Oxygen Delivery Method Room Air 03/21/21 10:41 Oxygen Flow Rate 0 03/21/21 10:41 Pain Level 0 03/21/21 10:41
== END 2021-03-21 11:22 | disposition home or self-care (01) ==
PROVIDERS: Emergency Provider Physician Assistant; PCP Nurse Practitioner Family
DX: R20.2 Paresthesia of skin (principal); R23.8 Other skin changes

== ENCOUNTER 2021-12-08 17:53 | Outpatient (REF) | payer BC, SELFPAY ==
[2021-12-08 20:54] LABS: Bacteria Moderate HPF (Negative); C & S Indicated? C&S Done As Ordered; Casts Negative LPF (Negative); Crystals Negative HPF (Negative); Epithelial Cells Few HPF (Negative); Mucus Negative (Negative); RBC Negative HPF (0-2)
== END 2021-12-08 17:54 | disposition home or self-care (01) ==
LOC: LBN 17:53
PROVIDERS: PCP Nurse Practitioner Family; Visit Provider Physician Assistant Medical
DX: R10.9 Unspecified abdominal pain (principal)
CPT/HCPCS: 81015; 87086

== ENCOUNTER 2021-12-12 12:53 | Emergency (ER) | payer BC, SELFPAY ==
[2021-12-12 13:02] VITALS: BP 123/78; PULSE 59; RESP 18; TEMP 37.2; O2SAT 100
[2021-12-12 15:05] VITALS: BP 108/74; PULSE 50; RESP 16; TEMP 36.9; O2SAT 96
--- NOTE | 2021-12-12 16:14 | ED.GENADUL_ITS ---
Discharge Plan Disposition Patient Disposition: HOME Condition: Stable Discharge Details Clinical Impression: Ovarian cyst Primary Care Provider: Tanna Muñiz ED Provider: Alejandra Torres Home Meds and New Rx's Prescriptions: Continued clonazepam [Klonopin] 0.5 mg tablet 0.5 mg PO DAILY PRN hyoscyamine sulfate 0.125 mg tablet, sublingual 0.125 mg PO PRN PRN Label Comments: DISSOLVE 1 TABLET UNDER TONGUE DAILY. INCREASE NEEDED TO 1 TO 2 TABLETS FOR SEVERE PAIN MAXIMUM DAILY DOSE = 6 cyclobenzaprine 10 mg tablet 10 tab PO Q6H PRN ketorolac 10 mg tablet 10 tab PO Q6H PRN PRN Discharge Instructions Instructions: Ovarian Cyst (ED) Additional Instructions: Please take the pain medication with food before bedtime as needed for moderate to severe pain. You may take one tablet every 4-6 hours as needed for pain. I did review your records and the Ovarian cyst is relatively small at 2.5 cm. These will usually go away on their own. Please follow up with PAPER CUTTING MACHINE OPERATOR on sunday as previously scheduled or you can establish care with our womens wellness group. Ultrasound is not available at this time tonight. Take Tylenol or ibuprofen every 4-6 hours as needed for pain. Referrals: Teresa Echeverria MD [ [facility] STAFF PHYSICIAN] - 3 days Discharge Data Discharge Date/Time-TO BE ENTERED AT DEPARTURE: 12/12/21 16:45 Medical Decision Making Unfortunately at this time US is not in house. After reviewing the labs from yesterday, I feel it is appropriate to refer to OB with care management assistance as soon as possible. Patient has an appt with her chargemaster analyst at [facility] on Sunday. Outpatient ultrasound ordered to eval ovarian cyst. Referral was given for FUSING MACHINE FEEDER and women's wellness. Patient was given 4 tablets of hydrocodone as needed for pain relief. This text was generated using [employer] system, please disregard any oddities of phrase or misspellings. Medical Records Medical records reviewed: Yes I reviewed the patient's medical records. Medical records narrative: Records received from [facility] and CT results. HPI General Mode of arrival: ambulatory . Date/Time Provider Initiated Documentation: 12/12/21 14:10 . Limitations to Documentation: no limitations . Information obtained by: patient, RN notes reviewed and old records reviewed . HPI Narrative: 46 year old female presents to the ED requesting to speak with dye weigher regarding a 2.5 cm right ovarian cyst which was diagnosed at [facility] yesterday via CT. She is stating she is having a hard time sleeping at night due to pain. She has been taking toradol and flexeril. CT report shows normal appendix and some lesions on her spleen. I did offer pain medications. Related Data Home Medications Medication Instructions Recorded Confirmed clonazepam 0.5 mg tablet (Klonopin) 0.5 mg PO DAILY PRN 09/25/19 12/12/21 hyoscyamine sulfate 0.125 mg 0.125 mg PO PRN PRN 03/18/21 12/12/21 sublingual tablet cyclobenzaprine 10 mg tablet 10 tab PO Q6H PRN 12/12/21 12/12/21 ketorolac 10 mg tablet 10 tab PO Q6H PRN PRN 12/12/21 12/12/21 Allergies Allergy/AdvReac Type Severity Reaction Status Date / Time No Known Allergies Allergy Verified 12/12/21 13:07 General Stated Complaint: Abd Prob SANJUANA: 3 Review of Systems All systems reviewed & are unremarkable except as noted in HPI and below Gastrointestinal Gastrointestinal: Reports abdominal pain (only at night patient is pain-free upon arrival) [facility] All Active Problems (Updated 12/12/21 @ 16:23 by Alejandra Torres NP) Abdominal pain (Acute) Ovarian cyst (Acute) Chondromalacia patellae of right knee (Acute) Depo-Medrol injection: 09/25/2019 Patellar tendinitis, right knee (Acute) Internal derangement of right knee (Acute) Social History Smoking/Tobacco Use Status: Never Smoking risk assessment performed?: Yes Alcohol Intake: current Alcohol Intake frequency: 0-2 drinks per day Alcohol type: wine Drug use: Never Substance use type: does not use Current gender identity: female Do you feel safe at home: Yes Do you feel safe in your relationship?: Yes Exam Narrative Exam Narrative: Constitutional: Alert and oriented x3. Appears stated age. Normal body habitus. Head: Normocephalic, no trauma. Chest: RRR, Normal S1, S2, distal pulses intact. Resp: Lungs clear to auscultation bilaterally, no wheezes, rales, or rhonchi. Abdomen: Soft, non-distended, Normoactive bowel sounds all 4 quads. Musculoskeletal: Normal gait, 5/5 strength to all four extremities. Course Vital Signs Vital signs: Vital Signs Temperature 37.2 C 12/12/21 13:02 Pulse 59 L 12/12/21 13:02 Respiratory Rate 18 12/12/21 13:02 Blood Pressure 123/78 12/12/21 13:02 Pulse Oximetry 100 12/12/21 13:02 Temperature 36.9 C 12/12/21 15:05 Temperature Source Tympanic 12/12/21 15:05 Pulse 50 L 12/12/21 15:05 Respiratory Rate 16 12/12/21 15:05 Respiratory Effort 12/12/21 15:38 Respiratory Depth Normal 12/12/21 15:38 Respiratory Pattern Normal 12/12/21 15:38 Blood Pressure 108/74 12/12/21 15:05 Blood Pressure Position Sitting 12/12/21 13:02 Pulse Oximetry 96 12/12/21 15:05 Oxygen Delivery Method Room Air 12/12/21 15:38 Oxygen Flow Rate 0 12/12/21 15:38 Pain Level 4 12/12/21 13:09
[2021-12-12] MEDS: oxyCODONE 5 mg/Acetaminophen 325 mg TAB 3 TAB PO (16:44)
--- NOTE | 2021-12-12 18:48 | NUR.NOTE ---
Nursing Note: Faxed to [facility] request for US non OB pelvic US. for Right ovarian cyst to be done in 24 to 48hrs and follow up with [facility].
== END 2021-12-12 16:45 | disposition home or self-care (01) ==
PROVIDERS: Emergency Provider Registered Nurse Emergency; PCP Nurse Practitioner Family
DX: N83.291 Other ovarian cyst, right side (principal)
CPT/HCPCS: 99283

== ENCOUNTER 2022-05-01 01:25 | Outpatient (CLI) | payer BC, SELFPAY ==
--- NOTE | 2022-05-01 15:15 | DI.MAMMO_ITS ---
Exam(s) MAMMO SCREENING EXAM: MAMMO SCREENING CLINICAL HISTORY: SCREENING, Z12.31; AREA OF DENSER TISSUE ON LT, BUT NO MASS FELT TECHNIQUE: Bilateral full field digital CC and MLO mammographic images were obtained with 3D tomosyn thesis and utilizing computer aided detection (CAD). COMPARISON: Available for comparison. FINDINGS: Masses/Architectural Distortion: None seen. Microcalcifications: No suspicious pleomorphic-type are seen. Skin Thickening/Nipple Retraction: None. IMPRESSION: 1. No significant interval change with no specific features of malignancy noted. 2. Unless there is more urgent need, screening mammography is recommended, as per [employer] guidelines. BI-RADS Category 1 - Negative Breast Density - Category C - Heterogeneously dense Breast density category C or D implies that the patient has dense breast tissue. Dense breast tissue is very common and is not abnormal but dense breast tissue can make it harder to find cancer on a ma mmogram. Also, dense breast tissue may increase their breast cancer risk. This information about the result of the mammogram report was provided to the patient to raise their awareness. Use this report when you speak with the patient about their risks for breast cancer, which includes their family hist ory. At that time, you may recommend for more screening tests (Ultrasound or MRI) as they might be us eful based on their risk. A negative radiographic report should not delay biopsy if a dominant or clinically suspicious mass is present. Up to ten percent of cancers are not identified on mammography. A negative report may reinforce clinical impression. Adenosis and dense breasts may obscure an underlying neoplasm. False positive reports average 6 to 10%. Patient will receive a letter notifying them of these results.
== END 2022-05-01 01:45 ==
LOC: DI 01:25
PROVIDERS: PCP Nurse Practitioner Family; Visit Provider Advanced Practice Midwife
DX: Z12.31 Encounter for screening mammogram for malignant neoplasm of breast (principal)
CPT/HCPCS: 77063; 77067

== ENCOUNTER 2022-06-30 15:39 | Outpatient (REF) | payer BC, SELFPAY ==
[2022-06-30 13:58] LABS: MCHC 32.6 % (32.0-36.0); MCV 95 fL (80-95); MPV 12.7 fL (8.0-11.0); Platelet Count 177 10^3/uL (130-400); RBC 4.52 10^6/uL (3.93-5.22); RDW 12.6 % (11.7-14.6); RDW-SD 44.7 fL; WBC 9.35 10^3/uL (4.4-10.8)
[2022-06-30 14:42] LABS: BUN 10 mg/dL (7-18); Calcium 9.3 mg/dL (8.5-10.1); Chloride 103 mmol/L (98-107); Estimated GFR 69.06 (mL/min/1.73m2); Ferritin 62 ng/mL (8-252); Glucose 99 mg/dL (74-106); Potassium 4.5 mmol/L (3.5-5.1); Sodium 142 mmol/L (136-145); TSH (W/Ref FT4) 1.47 uIU/mL (0.36-3.74); Vitamin B12 341 pg/mL (193-986)
[2022-06-30 14:47] LABS: Vitamin D 25 Total 43.6 ng/mL (30-100)
[2022-06-30 14:50] LABS: Iron 87 ug/dL (50-170); Total Iron Binding Capacity 367 ug/dL (250-450); Transferrin Sat 24 % (15-50)
== END 2022-06-30 15:40 | disposition home or self-care (01) ==
LOC: NCHCN 15:39
PROVIDERS: PCP Nurse Practitioner Family; Visit Provider Family Medicine
DX: M06.9 Rheumatoid arthritis, unspecified (principal); I95.9 Hypotension, unspecified; R60.0 Localized edema; I77.819 Aortic ectasia, unspecified site
CPT/HCPCS: 80048; 82306; 85027; 82607; 82728; 83540; 83550; 83735; 84443

== ENCOUNTER 2022-07-24 01:14 | Outpatient (CLI) | payer BC, SELFPAY ==
--- NOTE | 2022-07-24 16:18 | DI.RAD_ITS ---
Exam(s) XR FOOT LT COMPLETE EXAM: XR FOOT LT COMPLETE CLINICAL HISTORY: LEFT BUNION M21.612. TECHNIQUE: 2D digital imaging was performed of the left foot. Three images were obtained. AP, obli que and lateral views were obtained. COMPARISON: No examinations for comparison. FINDINGS: BONES: No acute fracture is present. No bony destructive lesion is seen. JOINTS: No dislocation present. There is joint space narrowing and bony hypertrophy at the DIP joint of the 3rd toe. No erosions are seen. SOFT TISSUE: Normal. IMPRESSION: Mild degenerative changes of the foot. DATA REPOSITORY: RADIATION DOSE DELIVERED:
--- NOTE | 2022-07-24 16:18 | DI.RAD_ITS ---
Exam(s) XR FOOT RT COMPLETE EXAM: XR FOOT RT COMPLETE CLINICAL HISTORY: RIGHT BUNION M21.611 RHEUMATOID ARTHRITIS M06.9. TECHNIQUE: 2D digital imaging was performed of the right foot. Images were obtained. AP, oblique and lateral views were obtained. COMPARISON: No exams were available for comparison FINDINGS: BONES: No acute fracture is present. No bony destructive lesion is seen. JOINTS: No dislocation present. The joint spaces are well maintained. No erosions or joint space sarah rowing is seen. SOFT TISSUE: Normal. IMPRESSION: Unremarkable radiographs of the right foot. DATA REPOSITORY: RADIATION DOSE DELIVERED:
== END 2022-07-24 01:34 ==
LOC: DI 01:16
PROVIDERS: PCP Nurse Practitioner Family; Visit Provider Family Medicine
DX: M19.072 Primary osteoarthritis, left ankle and foot (principal); M21.612 Bunion of left foot; M21.611 Bunion of right foot; M06.071 Rheumatoid arthritis without rheumatoid factor, right ankle and foot
CPT/HCPCS: 73630

== ENCOUNTER 2022-12-07 17:07 | Outpatient (REF) | payer BC, SELFPAY ==
[2022-12-07 21:19] LABS: ALT 19 U/L (14-59); AST 17 U/L (15-37); Albumin 3.7 g/dL (3.4-5.0); Alkaline Phosphatase 42 U/L (46-116); Anion Gap 6.9 mmol/L (3-11); BUN 21 mg/dL (7-18); Bilirubin, Total 0.2 mg/dL (0.2-1.0); C-Reactive Protein 0.08 mg/dL (0.0-0.3); CO2 27.1 mmol/L (21.0-32.0); Calcium 9.3 mg/dL (8.5-10.1); Chloride 105 mmol/L (98-107); Estimated GFR 69.06 (mL/min/1.73m2); Glucose 100 mg/dL (74-106); Potassium 4.1 mmol/L (3.5-5.1); Sodium 139 mmol/L (136-145); Total Protein 7.1 g/dL (6.4-8.2)
[2022-12-08 19:00] LABS: Rheumatoid Factor <8.6 IU/mL (<12.0)
== END 2022-12-07 17:08 | disposition home or self-care (01) ==
LOC: NCHCN 17:07
PROVIDERS: PCP Nurse Practitioner Family; Visit Provider Family Medicine
DX: R14.0 Abdominal distension (gaseous) (principal); R10.9 Unspecified abdominal pain
CPT/HCPCS: 80053; 86140; 86431

== ENCOUNTER 2022-12-08 09:32 | Outpatient (REF) | payer BC, SELFPAY ==
[2022-12-11 13:53] LABS: Helicobacter pylori Ag, Feces Negative (Negative)
[2022-12-11 20:23] LABS: Pancreatic Elastase, F >500 mcg/g
== END 2022-12-08 09:33 | disposition home or self-care (01) ==
LOC: NCHCN 09:32
PROVIDERS: PCP Nurse Practitioner Family; Visit Provider Family Medicine
DX: R14.0 Abdominal distension (gaseous) (principal); R10.9 Unspecified abdominal pain
CPT/HCPCS: 87329; 87338; 82656; 87177

== ENCOUNTER 2023-02-21 04:48 | Outpatient (CLI) | payer BC, SELFPAY ==
--- OUTSIDE RECORDS SUMMARY | 2023-02-21 04:50 | XMS_ITS | Continuity of Care Document ---
Author Name Unknown Address [address] [place] [address] Phone [facility] Practices Address [address] [place] [address] Phone Care Team Providers Care Scientific Programmer Analyst Name Role Phone MD Jackie Carlos Primary Care Provider YASSINE Chopra Attending Provider Care Teams Patient Care Team Team Status: Active Member Role Status Dates Jackie Carlos MD Primary Care Provider Active Visit Care Team Team Status: Inactive Member Role Status Dates Jackie Carlos MD Primary Care Provider, Referring P rovider Active Calista Chopra DPM Attending Provider Active Chief Complaint and Reason for Visit Chief Complaint Bilat bunions and rh eumatoid arthritis Allergies, Adverse Reactions, Alerts No known allergies Social History Smoking Status Status Start Date End Date Date of Observa tion Unknown if ever smoked 2022 4:49pm Additional Data Assigned Sex Female Problems Active Problems Medical Problem Onset Date Status Rheumatoid arthritis Active Bilateral leg edema Active Delusional disorder, persecutory type Active Low back pain Active Tinea versicolor Active Fatigue Active Palpitations Active Dizziness Active Family history of breast cancer Active Anxiety Active Dyspepsia Active Flank pain Active Seasonal allergies Active Leg pain, right Active Aortic dilatation Active Facial paresthesia Active Raynauds phenomenon Active Congenital finger anomaly Active Ascending aortic aneurysm Active Knee pain, right Active Skull lesion Active Neck pain Active Inconclusive mammogram Active Abnormal Pap smear of cervix Act ana Dense breast Active Abdominal pain Active Bunion of left foot Active Bunion of right foot Active Hypotension Active Constipation Active IBS (irritable bowel syndrome) A ctive Small bowel disease Active Medications Medication Status Dose Units Route Directions Qty Days St art Date End Date Instructions Clonazepam Active 0.5 MG PO daily August 24, 2022 12:00a m Dicyclomine Active 10 MG PO 2 times per day August 24, 2022 12:00a m Ketorolac Active 10 MG PO 4 times pe r day August 24, 2022 12:00a m Cyclobenzapri ne Active 10 MG PO 3 times per day August 24, 2022 12:00a m Gabapentin Discontin ued 300 MG PO daily at bedtime August 24, 2022 12:00a m Sept2022 4:41pm Hyoscyamine Sulfate Active 0.25 MG PO 4 times per day August 24, 2022 12:00a m Simethicone (Gas Relief (Simethicone) ) 80 mg tablet,chewab le Active 80 MG PO 4 times per day August 24, 2022 12:00a m Vital Signs Vital Reading Result Reference Range Collection Date/Time Height 65 [in_i] November 08, 2022 4:42pm Weight 138.00 [lb_av] October 4:42pm Heart Rate 56 /min 60-100 November 08, 2022 4:42pm Respiratory rate 18 /min -October 212022 4:42pm Oxygen saturation by Pulse oximetry 98 % 92-100 November 08, 2022 4:42pm BP Systolic 109 mm[Hg] 90-130 November 08, 2022 4:42pm BP Diastolic 83 mm[Hg] 70-80 November 08, 2022 4:42pm BMI (Body Mass Index) 22.9 kg/m2 2022 4:42pm Insurance Providers Guarantor GENESIS CORRAL RICHA Address [address] [place] [address] Contact Info. Home Phone: Payer Policy Id Coverage Id Subscriber's Name Subscriber Id Effective Date Expiration Date [place] [employer] [id number] GENESIS CHAUDHRY [id number] Encounters Encounter Location(s) Arrival/Admit Date Discharge/Depart Date Provider(s) Departed Physician/Prov ider Office Visit [facility] [place] November 08, 2022 4:00pm November 08, 2022 5:13pm Calista Chopra DPM
--- OUTSIDE RECORDS SUMMARY | 2023-02-21 04:53 | XMS_ITS | Continuity of Care Document ---
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 Name Role Phone LISA CORDON Primary Care Physician Encounter [facility] [id number] Date(s): 12/11/21 - 12/11/[address] [address] Encounter Diagnosis Ovarian cyst, right(Discharge Diagnosis) - 12/11/21 Musculoskeletal pain(Discharge Diagnosis) - 12/11/21 Splenic lesion(Discharge Diagnosis) - 12/11/21 Discharge Disposition: Home or Self Care Attending Physician: Campos Quintero MD Attending Physician: Al Duran DO Admitting Physician: Al Duran DO Allergies, Adverse Reactions, Alerts No Known Allergies Medications cyclobenzaprine 10 mg oral tablet 10 mg = 1 tab, Oral, TID, PRN as needed for spasm, # 30 tab, 0 Refill(s) Start Date: 12/11/21 Status: Ordered ketorolac 10 mg oral tablet 10 mg = 1 tab, Oral, QID, PRN as needed for pain, not to exceed 40 mg/day and 5 days duration for all dose forms, # 20 tab, 0 Refill(s) Start Date: 12/11/21 Stop Date: 12/16/21 Status: Ordered Mental Status 12/11/21 Eye Opening Response Melly Spontaneous ly Best Verbal Response Columbia Oriented Best Motor Response Columbia Obeys comman ds Columbia Coma Score 15 Problem List No Known Problems Results Laboratory List Name Date Automated Diff 12/11/21 CBC w/ Diff 12/11/21 Comprehensive Metabolic Panel 12/11/21 Lipase Level 12/11/21 Test Serum Qual 12/11/21 Urinalysis Microscopic 12/11/21 Urinalysis with Micro if Indicated and C ulture if Indicated 12/11/21 Most recent to oldest [Reference Range]: 1 WBC [4.8-10.8 K/mcL] 5.9 K/mcL (12/11/21 10:00 AM) RBC [4.20-6.10 Million/mcL] 3.52 Million /mcL *LOW* (12/11/21 10:00 AM) Neutro Auto [42.2-75.2 %] 64.3 % (12/11/21 10:00 AM) Lymph Auto [20.5-51.1 %] 27.7 % (12/11/21 10:00 AM) Irwin Auto [1.7-9.3 %] 6.5 % (12/11/21 10:00 AM) Basophil Auto [0.0-0.2 %] 0.3 % *HI* (12/11/21 10:00 AM) BUN [8-26 mg/dL] 12 mg/dL (12/11/21 10:00 AM) UA Color LIGHT YELL *NA* (12/11/21 9:20 AM) UA WBC [0-3] 0-3 (12/11/21 9:20 AM) Glucose Level [74-106 mg/dL] 98 mg/dL (12/11/21 10:00 AM) Potassium Level [3.5-5.1 mmol/L] 3.8 mmo l/L (12/11/21 10:00 AM) Baso Absolute [0.0-0.2 K/mcL] 0.0 K/mcL (12/11/21 10:00 AM) MCV [80.0-99.0 fL] 98.3 fL (12/11/21 10:00 AM) UA Urobilinogen [0.2] 0.2 (12/11/21 9:20 AM) UA Bili [Negative] Negative (12/11/21 9:20 AM) UA Ketones [Negative] Negative (12/11/21 9:20 AM) AST [15-41 IntlUnit/L] 15 IntlUnit/L (12/11/21 10:00 AM) ALT [14-54 IntlUnit/L] 19 IntlUnit/L (12/11/21 10:00 AM) MCHC [32.0-36.0 g/dL] 32.4 g/dL (12/11/21 10:00 AM) Osmolality [275-295 mOsm/kg] 266 mOsm/kg *LOW* (12/11/21 10:00 AM) Sodium Level [134-143 mmol/L] 133 mmol/L *LOW* (12/11/21 10:00 AM) UA RBC [0-3] 0-3 (12/11/21 9:20 AM) UA Leuk Est [Negative] Negative (12/11/21 9:20 AM) Lymph Absolute [1.2-3.4 K/mcL] 1.6 K/mcL (12/11/21 10:00 AM) UA Nitrite [Negative] Negative (12/11/21 9: AM) UA Glucose [Negative] Negative (12/11/21 9: AM) Hct [37.0-52.0 %] 34.6 % *LOW* (12/11/21 10:00 AM) UA Bacteria [None Seen] 2+ *ABN* (12/11/21 9:20 AM) Lipase Level [18-51 unit/L] 42 unit/L (12/11/21 10:00 AM) Calcium Level [8.9-10.3 mg/dL] 8.6 mg/dL *LOW* (12/11/21 10:00 AM) Irwin Absolute [0.1-0.6 K/mcL] 0.4 K/mcL (12/11/21 10:00 AM) Albumin Level [3.5-5.0 g/dL] 3.7 g/dL (12/11/21 10:00 AM) Protein Total [6.5-8.1 g/dL] 6.4 g/dL *LOW* (12/11/21 10:00 AM) UA Protein [Negative] Negative (12/11/21 9:20 AM) MCH [27.0-31.0 pg] 31.8 pg *HI* (12/11/21 10:00 AM) Neutro Absolute [1.4-6.5 K/mcL] 3.8 K/mc L (12/11/21 10:00 AM) Bilirubin Total [0.2-1.2 mg/dL] 1.0 mg/d L (12/11/21 10:00 AM) Hgb [12.0-18.0 g/dL] 11.2 g/dL *LOW* (12/11/21 10:00 AM) Alk Phos [38-130 IntlUnit/L] 32 IntlUnit /L *LOW* (12/11/21 10:00 AM) UA Blood [Negative] Trace *ABN* (12/11/21 9:20 AM) MPV [7.4-10.4 fL] 11.4 fL *HI* (12/11/21 10:00 AM) UA Spec Grav <=1.005 *NA* (12/11/21 9:20 AM) Platelets [130-400 K/mcL] 142 K/mcL (12/11/21 10:00 AM) CO2 [22-32 mmol/L] 25 mmol/L (12/11/21 10:00 AM) Eos Absolute [0.0-0.2 K/mcL] 0.1 K/mcL (12/11/21 10:00 AM) UA Squam Epithelial [0-3] 10-25 1 *ABN* (12/11/21 9:20 AM) UA pH 5.50 *NA* (12/11/21 9:20 AM) eGFR Non-AA 87 *NA* (12/11/21 10:00 AM) eGFR AA 87 *NA* (12/11/21 10:00 AM) UA Appear [Clear] Clear (12/11/21 9:20 AM) Chloride Level [98-111 mmol/L] 99 mmol/L (12/11/21 10:00 AM) RDW-CV [11.5-14.5 %] 13.7 % (12/11/21 10:00 AM) A/G Ratio 1.4 *NA* (12/11/21 10:00 AM) BUN/Creat Ratio [8.0-20.0] 14.5 (12/11/21 10:00 AM) Globulin 2.7 *NA* (12/11/21 10:00 AM) hCG Qual Serum [Negative] Negative (12/11/21 10:00 AM) Imm Gran Absolute 0.01 *NA* (12/11/21 10:00 AM) Imm Gran Auto [0.0-0.5 %] 0.2 % (12/11/21 10:00 AM) UA Culture Ind?. [No] No (12/11/21 9:20 AM) Urine Srce Clean Catch (12/11/21 9:20 AM) Creatinine Level [0.44-1.00 mg/dL] 0.83 mg/dL (12/11/21 10:00 AM) Anion Gap [3.0-12.0] 9.0 (12/11/21 10:00 AM) Eos, Auto [0.00-3.00 %] 1.00 % (12/11/21 10:00 AM) 1Result Comment: Suggestive of contamination. Radiology Reports * Exam Date Time Procedure Performing Provider Status 12/11/21 9:[address] Abdomen and Pelvi s w/ Contrast Helga Nguyen; Saud (Verified) Notes: (CT Abdomen and Pelvis w/ Contrast) Reason For Exam: Abdominal Pain CT Abdomen and Pelvis w/ Contrast PROCEDURE INFORMATION: Exam: CT Abdomen And Pelvis With Contrast Exam date and time: 12/11/2021 9:20 AM Age: 46 years old Clinical indication: Abdominal pain; Generalized; Patient HX: Ibs; Additional info: Abdominal pain and low back pain TECHNIQUE: Imaging protocol: Computed tomography of the abdomen and pelvis with contrast. Radiation optimization: All CT scans at this facility use at least one of these dose optimization techniques: automated exposure control; mA and/or kV adjustment per patient size (includes targeted exams where dose is matched to clinical indication); or iterative reconstruction. Contrast material: ISOVUE 300; Contrast volume: 100 ml; Contrast route: INTRAVENOUS (IV); COMPARISON: No relevant prior studies available. FINDINGS: Liver: The liver is homogeneous and is not enlarged. Gallbladder and bile ducts: No calcified gallstones, gallbladder wall thickening, or pericholecystic inflammation. No biliary ductal dilation. Pancreas: No pancreatic enlargement, peripancreatic inflammation, or ductal dilation. Spleen: The spleen is not enlarged. There appears to be multiple hyperenhancing lesions in the spleen. These measure up to approximately 2.5 cm in size. Adrenal glands: No adrenal mass. Kidneys and ureters: No hydronephrosis, nephrolithiasis, or renal mass. Stomach and bowel: There is fluid in multiple loops of small bowel without significant distention. This may be due to an enteritis, in the correct clinical setting. No bowel wall thickening. No bowel obstruction or diverticulitis. Appendix: The appendix has a normal caliber. There is gas in the lumen. No appendiceal wall thickening or periappendiceal inflammation. Intraperitoneal space: No ascites or pneumoperitoneum. No sign of an abscess. Vasculature: No abdominal aortic aneurysm. The mesenteric arteries are patent. The mesenteric, portal, and hepatic veins are patent. Lymph nodes: No pathologically enlarged lymph nodes. Urinary bladder: The urinary bladder is small in volume. No bladder calculus. Reproductive: There is a 2.5 cm right ovarian cyst. Bones/joints: No acute osseous abnormality. Soft tissues: No acute soft tissue abnormality. IMPRESSION: 1. No bowel obstruction or diverticulitis. Enteritis? 2. Multiple nonspecific enhancing splenic lesions. 3. Normal appendix. THIS DOCUMENT HAS BEEN ELECTRONICALLY SIGNED BY EDIS HARDIN MD on 12/11/2021 09:58 AM Final Signed by: Edis Hardin MD Signed (Electronic Signature): 12/11/2021 9:58 am Vital Signs Most recent to oldest [Reference Range]: 1 2 Temperature Temporal Artery [36-38 Deg C ] 37.4 Deg C (12/11/21 7:31 AM) Peripheral Pulse Rate [60-100 bpm] 55 bp m *LOW* (12/11/21 7:31 AM) Respiratory Rate [12-24 br/min] 15 br/mi n (12/11/21 7:31 AM) Blood Pressure [90-140/60-90 mmHg] 114/7 6mmHg (12/11/21 8:46 AM) 124/93mmHg (12/11/21 7:31 AM) Mean Arterial Pressure, Cuff [65-140 mmH g] 89 mmHg (12/11/21 8:46 AM) Weight Dosing 64.00 kg (12/11/21 8:04 AM) Weight Estimated 64.00 kg (12/11/21 7:31 AM) Height/Length Dosing 165.000 cm (12/11/21 8:04 AM) Height/Length Estimated 165.000 cm (12/11/21 7:31 AM) Social History Social History Type Response Tobacco Never tobacco user T obacco Use:. Sex Hospital Discharge Instructions Patient Education 12/11/2021 09:49:12 Ovarian Cyst Ovarian Cyst An ovarian cyst is a fluid-filled sac that forms on an ovary. The ovaries are small organs that produce eggs in women. Various types of cysts can form on the ovaries. Some may cause symptoms and require treatment. Most ovarian cysts go away on their own, are not cancerous (are benign), and do not cause problems. What are the causes? Ovarian cysts may be caused by: ??? Ovarian hyperstimulation syndrome. This is a condition that can develop from taking fertility medicines. It causes multiple large ovarian cysts to form. ??? Polycystic ovarian syndrome (PCOS). This is a common hormonal disorder that can cause ovarian cysts to form, and can cause problems with your period or fertility. ??? The normal menstrual cycle. What increases the risk? The following factors may make you more likely to develop this condition: ??? Being overweight or obese. ??? Taking fertility medicines. ??? Taking certain forms of hormonal control. ??? Smoking. What are the signs or symptoms? Many ovarian cysts do not cause symptoms. If symptoms are present, they may include: ??? Pelvic pain or pressure. ??? Pain in the lower abdomen. ??? Pain during sex. ??? Abdominal swelling. ??? Abnormal menstrual periods. ??? Increasing pain with menstrual periods. How is this diagnosed? These cysts are commonly found during a routine pelvic exam. You may have tests to find out more about the cyst, such as: ??? Ultrasound. ??? CT scan. ??? MRI. ??? Blood tests. How is this treated? Many ovarian cysts go away on their own without treatment. Your health care provider may want to check your cyst regularly for 2???3 months to see if it changes. If you are in menopause, it is especially important to have your cyst monitored closely because menopausal women have a higher rate of ovarian cancer. When treatment is needed, it may include: ??? Medicines to help relieve pain. ??? A procedure to drain the cyst (aspiration). ??? Surgery to remove the whole cyst (cystectomy). ??? Hormone treatment or control pills. These methods are sometimes used to help keep cysts from coming back. ??? Surgery to remove the ovary (oophorectomy). Follow these instructions at home: ??? Take [id number] and prescription medicines only as told by your health care provider. ??? Ask your health care provider if any medicine prescribed to you requires you to avoid driving or using machinery. ??? Get regular pelvic exams and Pap tests as often as told by your health care provider. ??? Return to your normal activities as told by your health care provider. Ask your health care provider what activities are safe for you. ??? Do not use any products that contain nicotine or tobacco, such as cigarettes, e-cigarettes, andchewing tobacco. If you need help quitting, ask your health care provider. ??? Keep all follow-up visits. This is important. Contact a health care provider if: ??? Your periods are late, irregular, painful, or they stop. ??? You have pelvic pain that does not go away. ??? You have pressure on your bladder or trouble emptying your bladder completely. ??? You have any of the following: ??? A feeling of fullness. ??? You are gaining weight or losing weight without changing your exercise and eating habits. ??? Pain, swelling, or bloating in the abdomen. ??? Loss of appetite. ??? Pain and pressure in your back and pelvis. ??? You think you may be . Get help right away if: ??? You have abdominal or pelvic pain that is severe or gets worse. ??? You cannot eat or drink without vomiting. ??? You suddenly develop a fever or chills. ??? Your menstrual period is much heavier than usual. Summary ??? An ovarian cyst is a fluid-filled sac that forms on an ovary. ??? Some ovarian cysts may cause symptoms and require treatment. ??? These cysts are commonly found during a routine pelvic exam. ??? Many ovarian cysts go away on their own without treatment. This information is not intended to replace advice given to you by your health care provider. Make sure you discuss any questions you have with your health care provider. Document Revised: 07/15/2020 Document Reviewed: 07/15/2020 [employer] Patient Education ?? 2021 [employer] 12/11/2021 09:49:11 Musculoskeletal Pain Musculoskeletal Pain Musculoskeletal pain refers to aches and pains in your bones, joints, muscles, and the tissues thatsurround them. This pain can occur in any part of the body. It can last for a short time (acute) ora long time (chronic). A physical exam, lab tests, and imaging studies may be done to find the cause of your musculoskeletal pain. Follow these instructions at home: Lifestyle ??? Try to control or lower your stress levels. Stress increases muscle tension and can worsen musculoskeletal pain. It is important to recognize when you are anxious or stressed and learn ways to manage it. This may include: ??? Meditation or yoga. ??? Cognitive or behavioral therapy. ??? Acupuncture or massage therapy. ??? You may continue all activities unless the activities cause more pain. When the pain gets better, slowly resume your normal activities. Gradually increase the intensity and duration of your activities or exercise. Managing pain, stiffness, and swelling ??? Treatment may include medicines for pain and inflammation that are taken by mouth or applied tothe skin. Take [id number] and prescription medicines only as told by your health care provider. ??? When your pain is severe, bed rest may be helpful. Lie or sit in any position that is comfortable, but get out of bed and walk around at least every couple of hours. ??? If directed, apply heat to the affected area as often as told by your health care provider. Usethe heat source that your health care provider recommends, such as a moist heat pack or a heating pad. ??? Place a towel between your skin and the heat source. ??? Leave the heat on for 20???30 minutes. ??? Remove the heat if your skin turns bright red. This is especially important if you are unable to feel pain, heat, or cold. You may have a greater risk of getting burned. ??? If directed, put ice on the painful area. To do this: ??? Put ice in a plastic bag. ??? Place a towel between your skin and the bag. ??? Leave the ice on for 20 minutes, 2???3 times a day. ??? Remove the ice if your skin turns bright red. This is very important. If you cannot feel pain, heat, or cold, you have a greater risk of damage to the area. General instructions ??? Your health care provider may recommend that you see a physical therapist. This person can helpyou come up with a safe exercise program. ??? If told by your health care provider, do physical therapy exercises to improve movement and strength in the affected area. ??? Keep all follow-up visits. This is important. This includes any physical therapy visits. Contact a health care provider if: ??? Your pain gets worse. ??? Medicines do not help ease your pain. ??? You cannot use the part of your body that hurts, such as your arm, leg, or neck. ??? You have trouble sleeping. ??? You have trouble doing your normal activities. Get help right away if: ??? You have a new injury and your pain is worse or different. ??? You feel numb or you have tingling in the painful area. Summary ??? Musculoskeletal pain refers to aches and pains in your bones, joints, muscles, and the tissues that surround them. ??? This pain can occur in any part of the body. ??? Your health care provider may recommend that you see a physical therapist. This person can helpyou come up with a safe exercise program. Do any exercises as told by your physical therapist. ??? Lower your stress level. Stress can worsen musculoskeletal pain. Ways to lower stress may include meditation, yoga, cognitive or behavioral therapy, acupuncture, and massage therapy. This information is not intended to replace advice given to you by your health care provider. Make sure you discuss any questions you have with your health care provider. Document Revised: 06/10/2020 Document Reviewed: 05/19/2020 [employer] Patient Education ?? 2021 [employer]. Follow Up Care 12/11/2021 07:30:58 With:Follow up with primary care provider Address:Unknown When:[address] Abdomen and Pelvis W contrast IV * Edis Hardin MD: VERIFY, VERIFY Event Display: Report PROCEDURE INFORMATION: Exam: CT Abdomen And Pelvis With Contrast Exam date and time: 12/11/2021 9:20 AM Age: 46 years old Clinical indication: Abdominal pain; Generalized; Patient HX: Ibs; Additional info: Abdominal pain and low back pain TECHNIQUE: Imaging protocol: Computed tomography of the abdomen and pelvis with contrast. Radiation optimization: All CT scans at this facility use at least one of these dose optimization techniques: automated exposure control; mA and/or kV adjustment per patient size (includes targeted exams where dose is matched to clinical indication); or iterative reconstruction. Contrast material: ISOVUE 300; Contrast volume: 100 ml; Contrast route: INTRAVENOUS (IV); COMPARISON: No relevant prior studies available. FINDINGS: Liver: The liver is homogeneous and is not enlarged. Gallbladder and bile ducts: No calcified gallstones, gallbladder wall thickening, or pericholecystic inflammation. No biliary ductal dilation. Pancreas: No pancreatic enlargement, peripancreatic inflammation, or ductal dilation. Spleen: The spleen is not enlarged. There appears to be multiple hyperenhancing lesions in the spleen. These measure up to approximately 2.5 cm in size. Adrenal glands: No adrenal mass. Kidneys and ureters: No hydronephrosis, nephrolithiasis, or renal mass. Stomach and bowel: There is fluid in multiple loops of small bowel without significant distention. This may be due to an enteritis, in the correct clinical setting. No bowel wall thickening. No bowel obstruction or diverticulitis. Appendix: The appendix has a normal caliber. There is gas in the lumen. No appendiceal wall thickening or periappendiceal inflammation. Intraperitoneal space: No ascites or pneumoperitoneum. No sign of an abscess. Vasculature: No abdominal aortic aneurysm. The mesenteric arteries are patent. The mesenteric, portal, and hepatic veins are patent. Lymph nodes: No pathologically enlarged lymph nodes. Urinary bladder: The urinary bladder is small in volume. No bladder calculus. Reproductive: There is a 2.5 cm right ovarian cyst. Bones/joints: No acute osseous abnormality. Soft tissues: No acute soft tissue abnormality. IMPRESSION: 1. No bowel obstruction or diverticulitis. Enteritis? 2. Multiple nonspecific enhancing splenic lesions. 3. Normal appendix. THIS DOCUMENT HAS BEEN ELECTRONICALLY SIGNED BY EDIS HARDIN MD on 12/11/2021 09:58 AM Final Signed by: Edis Hardin MD Signed (Electronic Signature): 12/11/2021 9:58 am Patient Care team information Personnel Name: LISA CORDON Address: Address: [address] [place] [id number] [place] [address]
--- OUTSIDE RECORDS SUMMARY | 2023-02-21 04:53 | XMS_ITS | Continuity of Care Document ---
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 Name Role Phone IVETT NOWAK, DHARA Azevedo Primary Care Physician Encounter [facility] [place] [id number] Date(s): 02/09/23 - 02/09/[address] [address]- Discharge Disposition: Home or Self Care Attending Physician: Blake Duncan DO Admitting Physician: Blake Duncan DO Referring Physician: Blake Duncan DO Allergies, Adverse Reactions, Alerts No Known Allergies Assessment and Plan Diagnostic Tests Pending * Miscellaneous Testing 02/09/23 * [id number] Milk 02/09/23 * [id number] Soybean 02/09/23 * Miscellaneous Testing 02/09/23 * Miscellaneous Testing 02/09/23 * Miscellaneous Testing 02/09/23 Medications clonazePAM 0.5 mg oral tablet TAKE 1/2 TABLET BY MOUTH ONCE A DAY NEEDED Start Date: 02/08/23 Status: Ordered cyclobenzaprine 10 mg oral tablet 10 mg = 1 tab, Oral, TID, PRN as needed for spasm, # 30 tab, 0 Refill(s) Start Date: 12/11/21 Status: Ordered dextroamphetamine-amphetamine 5 mg oral tablet TAKE ONE TABLET BY MOUTH ONCE A DAY. MAY INCREASE TO TWICE A DAY (4 HOURS BETWEEN DOSES) IF TOLERATING. DO NOT TAKE AT SAME TIME MYLANTA. Start Date: 02/08/23 Status: Ordered dicyclomine 20 mg oral tablet TAKE ONE TABLET BY MOUTH FOUR TIMES A DAY Start Date: 02/08/23 Status: Ordered gabapentin 300 mg oral capsule TAKE ONE CAPSULE BY MOUTH EVERY EVENING Start Date: 02/08/23 Status: Ordered ketorolac 10 mg oral tablet 10 mg = 1 tab, Oral, QID, PRN as needed for pain, not to exceed 40 mg/day and 5 days duration for all dose forms, # 20 tab, 0 Refill(s) Start Date: 12/11/21 Stop Date: 12/16/21 Status: Ordered lansoprazole 15 mg oral delayed release capsule TAKE ONE CAPSULE BY MOUTH EVERY DAY Start Date: 02/08/23 Status: Ordered Linzess 72 mcg oral capsule TAKE ONE CAPSULE BY MOUTH EVERY DAY Start Date: 02/08/23 Status: Ordered Mintox Maximum Strength oral suspension TAKE 10ML BY MOUTH FOUR TIMES A DAY NEEDED FOR REFLUX Start Date: 02/08/23 Status: Ordered omeprazole 20 mg oral delayed release capsule TAKE 1 CAPSULE BY MOUTH DAILY 30 MINUTES BEFORE MEALTIME Start Date: 02/08/23 Status: Ordered propranolol 10 mg oral tablet TAKE ONE TABLET BY MOUTH TWICE A DAY NEEDED FOR ANXIETY Start Date: 02/08/23 Status: Ordered Trulance 3 mg oral tablet TAKE ONE TABLET BY MOUTH EVERY DAY Start Date: 02/08/23 Status: Ordered Problem List Condition Confirmation Course Effective Dates Status H ealth Status Informant Abdominal bloating Confirmed Active Abdominal pain Confirmed Active Aortic root dilation Confirmed Active Barretts esophagus Confirmed Active Bilateral leg edema Confirmed Active Bunion Confirmed Active Skull lesion Confirmed Active Small intestine disorder Confirmed Active Attention or concentration deficit Confirmed Active Dizziness Confirmed Active Facial paresthesia Confirmed Active Fatigue Confirmed Active Dyspepsia Confirmed Active Cervicitis Confirmed Active Hypotension Confirmed Active Anxiety and depression Confirmed Active Palpitations Confirmed Active Tinea versicolor Confirmed Active Sessile colonic polyp Confirmed Active Food sensitivity with gastrointestinal symptoms Confirmed Active Raynaud phenomenon Confirmed Active Rheumatoid arthritis Confirmed Active Abnormal skin growth Confirmed Active Vaginitis Confirmed Active Social History Social History Type Response Tobacco Never tobacco user T obacco Use:. Sex Patient Care team information Care Team Personnel Name: DHARA ROOT MD Position: No Access Member Role: Primary Care Physician Address: Address: [address] [place] [id number] Care Team Related Persons Name: HOLLY CHAUDHRY
--- OUTSIDE RECORDS SUMMARY | 2023-02-21 04:53 | XMS_ITS | Continuity of Care Document ---
Author Name Unknown Organization [facility] Ambulatory Clinics Address [address] [place] [address] Care Team Providers Care Technical Information Specialist Name Role Phone DHARA ROOT MD Primary Care Physician Encounter [facility] [id number] Date(s): 02/09/23 - 02/09/23 [facility] Ambulatory [facility] [address] [place], [place] [address] Encounter Diagnosis Abdominal bloating(Discharge Diagnosis) - 02/08/23 Abdominal pain(Discharge Diagnosis) - 02/08/23 Food sensitivity with gastrointestinal symptoms(Discharge Diagnosis) - 02/09/23 Discharge Disposition: Home or Self Care Attending Physician: Blake Duncan DO Referring Physician: DHARA ROOT MD Allergies, Adverse Reactions, Alerts No Known Allergies Medications clonazePAM 0.5 mg oral tablet TAKE [...] Never tobacco user T obacco Use:. Sex Physician Outpatient Note * Blake Duncan, DO: PERFORM Blake Duncan, DO: PERFORM, MODIFY Blake Duncan DO: MODIFY, MODIFY Event Display: Office Clinic Note Physician Authored Date: [id number] GENESIS CHAUDHRY :1975 Age:48 years Sex:Female Visit Date:02/09/2023 Primary Care Physician: DHARA ROOT MD Chief Complaint new patient - skin check and discuss possible food allergies History of Present Illness New patient referred by her primary care to?? discuss some possible food allergies. Patient has hadmultiple gastrointestinal issues that are causing pain, gas??and cramping. She believes these issues are related to possible food allergies even though they seem to present as an intolerance versus an allergy. Patient states that she has had stomach issues for about 20 years and she is now doing a food elimination diet. The FODMAP diet is eliminating bread, garlic, onion, any premade food, certain fruits and vegetables, glutens, some carbs and lactose. Patient has been on this diet for about six weeks now and has not been able to pin point any changes. Patient states that her son has severe food allergies to nuts. Patient has had prior colonoscopy with biopsy that she believes has ruled outCeliac disease.?? She is currently working with??dietitians, she is quite frustrated??with her??food sensitivities. ??She denies any angioedema or anaphylaxis.?? She did have a??eczema type skin react ion to aloe juice she feels.?? She has seen GI at [facility] she finds it very hard to follow-up with them, she has an upcoming appointment at[facility] as well. Her son does have a history of anaphylactic reaction to tree nuts. Review of Systems Fatigue?? Negative.?? Fever?? Negative.?? Weight Loss?? Negative.?? Snoring?? Negative.?? Hoarseness?? Negative.?? Glaucoma?? Negative.?? Double Vision?? Negative.?? Other eye problems?? Negative.?? Loss of taste?? Negative.?? Loss of smell?? Negative.?? Sinus trouble?? Negative.?? Difficulty swallowing?? Negative.?? High blood pressure?? Negative.?? Heart failure?? Negative.?? Chest pain/Angina?? Negative.?? Heart Attack?? Negative.?? Ankle/Foot swelling?? Negative.?? Shortness of breath?? Negative.?? High cholesterol?? Negative.?? Cough?? Negative.?? Diabetes?? Negative.?? Ulcer?? Negative.?? Blood in Stool ?? Negative.?? Colitis?? Negative.?? Prostate Problems?? Negative.?? Kidney Stones? ? Negative.?? Hepatitis?? Negative.?? Liver trouble?? Negative.?? Gall bladder problems?? Negative.?? Kidney infection?? Negative.?? Blood in urine?? Negative.?? Bladder infection?? Negative.?? Arthritis?? Negative.?? Fibromyalgia?? Negative.?? Bone disease?? Negative.?? Joint disease?? Negative.??Back problems?? Negative.?? Breast (lump/tumor)?? Negative.?? Rashes?? Negative.?? Eczema?? Negative.?? Headaches?? Negative.?? Meningitis?? Negative.?? Thyroid Problems?? Negative.?? Pituitary Problems?? Negative.?? Bleeding Disorder?? Negative.?? Anemia?? Negative.?? Lymphoma?? Negative.?? Venereal Disease?? Negative.?? AIDS/HIV?? Negative.?? Cancer?? Negative.?? Blood transfusion?? Negative.??Seizures?? Negative.?? Loss of consciousness?? Negative.?? Head Injury/concussion?? Negative.?? Multiple Sclerosis?? Negative.?? Nervous disorder?? Negative.?? Anxiety?? Negative.?? Depression?? Negative.?? Frequent infection?? Negative.?? Environmental allergies?? Negative.?? Hay Fever?? Negative.?? Reflux?? Negative.?? Sleep apnea?? Negative.?? Physical Exam GENERAL APPEARANCE:??The patient is awake, alert, and oriented and in no acute distress, Appears nutritionally sound, Healthy in appearance, Voice is strong, with no stridor or stertor, Handling secretions without difficulty.?PSYCH:??affect normal, good eye contact, oriented to person, oriented to place, oriented to time.?NEURO:??CN's II-XII grossly intact, Gait is normal, The patient has endpoint nystagmus only.?HEENT:??The patient is normocephalic with a normal facies with cranial nerves 2 through 12 bilaterally equal and intact. Pupils are equal and reactive to light with extraocular movements bilaterally equal and intact. There is no proptosis or enophthalmos, Procedure We reviewed the exam and most likely etiologies as they relate to the patient's symptoms. We discussed allergic rhinitis in detail including the immune response and its relationship to histamine, theenvironment and foods ingested. We stressed treatment of the nose as a critical factor to help control allergic rhinitis. We discussed avoidance and possible treatment options, which includes oral and intranasal medications, including intranasal steroids. We discussed allergy testing in detail, including risks and benefits. Treatment options include continuation of medical management and/or immunotherapy.??All the patient's questions were answered in detail, patient agrees with the above plan. Medical Decision Making: We will make referral to meet with Anabela Brooks, they may have some alternatives for GI??experts inthe area.?? Total time on date of encounter, ([id number] and non [id number]) (minutes): 35 Time was spent: reviewing prior notes and diagnostics, providing direct patient care, ordering diagnostics and/or referrals, documenting today's visit, updating the EMR, coordinating care and other ?? Assessment/Plan 1.??Food sensitivity with gastrointestinal symptoms??T78.1XXA Patient and I discussed that what the patient is experiencing with the pain and discomfort of eating is most likely related to a food intolerance or sensitivity. Patient aware that she could proceed with a food intolerance testing, but that could present with many positives that would take a long time to stop eating these certain foods and reintroducing slowly over time. Patient should continue following up with GI and we will send referral to GI here. Patient and I discussed we could order labs to test for mozzarella, cheddar, beef, milk, corn, soy and??wheat.?? We had a in-depth conversation today, her questions were answered, she will consider??a larger??tertiary care center??GI discussion in the [place] area. ??We have also discussed??evaluation by our GI here??at [place] Ordered: [id number] Milk LC, Blood, Routine, 02/09/23, Once, Lab Collect, Food sensitivity with gastrointestinal symptoms, Order for future visit [id number] Soybean LC, Blood, Routine, 02/09/23, Once, Lab Collect, Food sensitivity with gastrointestinal symptoms, Order for future visit Miscellaneous Testing LC, Blood, Routine Collect, 02/09/23, Once, Nurse collect, Print Label, Food sensitivity with gastrointestinal symptoms, Order for future visit, [place], [id number] Miscellaneous Testing LC, Blood, Routine Collect, 02/09/23, Once, Nurse collect, Print Label, Food sensitivity with gastrointestinal symptoms, Order for future visit, Wheat, [id number] Miscellaneous Testing LC, Blood, Routine Collect, 02/09/23, Once, Nurse collect, Print Label, Food sensitivity with gastrointestinal symptoms, Order for future visit, Beef, [id number] Miscellaneous Testing LC, Blood, Routine Collect, 02/09/23, Once, Nurse collect, Print Label, Food sensitivity with gastrointestinal symptoms, Order for future visit, Cheese, Cheddar Type, [id number] ?? 2.??Abdominal bloating??R14.0 ?? 3.??Abdominal pain??R10.9 ?? Future Orders [id number] Milk LC, Blood, Routine, 02/09/23, Once, Lab Collect, Food sensitivity with gastrointestinal symptoms, Order for future visit [id number] Soybean LC, Blood, Routine, 02/09/23, Once, Lab Collect, Food sensitivity with gastrointestinal symptoms, Order for future visit Miscellaneous Testing LC, Blood, Routine Collect, 02/09/23, Once, Nurse collect, Print Label, Food sensitivity with gastrointestinal symptoms, Order for future visit, Cheese, Cheddar Type, [id number] Miscellaneous Testing LC, Blood, Routine Collect, 02/09/23, Once, Nurse collect, Print Label, Food sensitivity with gastrointestinal symptoms, Order for future visit, [place], [id number] Miscellaneous Testing LC, Blood, Routine Collect, 02/09/23, Once, Nurse collect, Print Label, Food sensitivity with gastrointestinal symptoms, Order for future visit, Wheat, [id number] Miscellaneous Testing LC, Blood, Routine Collect, 02/09/23, Once, Nurse collect, Print Label, Food sensitivity with gastrointestinal symptoms, Order for future visit, Beef, [id number] Problem List/Past Medical History Ongoing Abdominal bloating Abdominal pain Abnormal skin growth Anxiety and depression Aortic root dilation Attention or concentration deficit Barretts esophagus Bilateral leg edema Bunion Cervicitis Dizziness Dyspepsia Facial paresthesia Fatigue Hypotension Palpitations Raynaud phenomenon Rheumatoid arthritis Sessile colonic polyp Skull lesion Small intestine disorder Tinea versicolor Vaginitis Historical No qualifying data Medications clonazePAM 0.5 mg oral tablet cyclobenzaprine 10 mg oral tablet, 10 mg= 1 tab, Oral, TID, PRN dextroamphetamine-amphetamine 5 mg oral tablet dicyclomine 20 mg oral tablet gabapentin 300 mg oral capsule ketorolac 10 mg oral tablet, 10 mg= 1 tab, Oral, QID, PRN lansoprazole 15 mg oral delayed release capsule Linzess 72 mcg oral capsule Mintox Maximum Strength oral suspension omeprazole 20 mg oral delayed release capsule propranolol 10 mg oral tablet Trulance 3 mg oral tablet Allergies No Known Allergies Social History Alcohol Current, Wine, Daily Electronic Cigarette/Vaping Electronic Cigarette Use: Never. Tobacco Never tobacco user Tobacco Use:. Electronically Signed on 02/09/23 03:42 PM Blake Duncan DO Patient Care team information Care Team Personnel Name: IVETT NOWAK, DHARA Azevedo Position: No Access Member Role: Primary Care Physician Address: Address: [address] [place] [id number] [place] [address] Care Team Related Persons Name: HOLLY CHAUDHRY
[2023-02-21 13:32] LABS: Abs Immature Grans 0.02 10^3/uL (0.0-0.06); Absolute Basophil Count 0.03 10^3/uL (0.0-0.2); Absolute Eosinophil Count 0.09 10^3/uL (0.0-0.7); Absolute Lymphocyte Count 1.98 10^3/uL (1.2-3.4); Absolute Monocyte Count 0.43 10^3/uL (0.1-0.8); Absolute Neutrophil Count 3.87 10^3/uL (1.2-6.7); Basophils % 0.5; Eosinophils % 1.4; HCT 37.3 % (36.0-46.0); HGB 12.1 g/dL (11.2-15.7); Immature Grans % 0.3; Lymphocytes % 30.8; MCH 30.4 pg (27.0-33.0); MCHC 32.4 % (32.0-36.0); MCV 94 fL (80-95); MPV 11.4 fL (8.0-11.0); Monocytes % 6.7; Neutrophils % 60.3; Platelet Count 165 10^3/uL (130-400); RBC 3.98 10^6/uL (3.93-5.22); RDW 13.2 % (11.7-14.6); RDW-SD 45.7 fL; WBC 6.42 10^3/uL (4.4-10.8)
[2023-02-21 14:15] LABS: Iron 92 ug/dL (50-170); Total Iron Binding Capacity 294 ug/dL (250-450); Transferrin Sat 31 % (15-50)
[2023-02-21 14:19] LABS: ALT 15 U/L (14-59); AST 10 U/L (15-37); Albumin 3.4 g/dL (3.4-5.0); Alkaline Phosphatase 43 U/L (46-116); Anion Gap 4.5 mmol/L (3-11); BUN 12 mg/dL (7-18); Bilirubin, Total 0.4 mg/dL (0.2-1.0); CO2 30.5 mmol/L (21.0-32.0); CREATININE 0.9 mg/dL (0.55-1.02); Calcium 9.1 mg/dL (8.5-10.1); Chloride 104 mmol/L (98-107); Estimated GFR 77.88 (mL/min/1.73m2); Folate 9.1 ng/mL (8.6-20.0); Glucose 97 mg/dL (74-106); Sodium 139 mmol/L (136-145); Total Protein 6.6 g/dL (6.4-8.2); Vitamin B12 853 pg/mL (193-986)
[2023-02-21 14:40] LABS: Vitamin D 25 Total 34.2 ng/mL (30-100)
[2023-02-24 16:25] LABS: Thiamine (Vitamin B1), WB 117 nmol/L (70-180)
== END 2023-02-21 04:49 | disposition home or self-care (01) ==
LOC: LBO 04:49
PROVIDERS: PCP Nurse Practitioner Family; Visit Provider Family Medicine
DX: R10.9 Unspecified abdominal pain (principal); R63.4 Abnormal weight loss; K22.70 Barrett's esophagus without dysplasia; Z91.89 Other specified personal risk factors, not elsewhere classified
CPT/HCPCS: 36415; 80053; 82306; 82607; 82746; 83540; 83550; 84425; 85025

== ENCOUNTER 2023-05-26 10:37 | Outpatient (REF) | payer BC, SELFPAY ==
[2023-05-29 17:43] LABS: Pancreatic Elastase, F >500 mcg/g
== END 2023-05-26 10:38 | disposition home or self-care (01) ==
LOC: LBN 10:37
PROVIDERS: PCP Nurse Practitioner Family; Visit Provider Internal Medicine Gastroenterology
DX: K58.0 Irritable bowel syndrome with diarrhea (principal)
CPT/HCPCS: 82656

== ENCOUNTER 2023-10-11 17:59 | Outpatient (CLI) | payer BC, SELFPAY ==
[2023-10-11 17:23] LABS: Abs Immature Grans 0.02 10^3/uL (0.0-0.06); Absolute Basophil Count 0.05 10^3/uL (0.0-0.2); Absolute Eosinophil Count 0.08 10^3/uL (0.0-0.7); Absolute Lymphocyte Count 2.89 10^3/uL (1.2-3.4); Absolute Neutrophil Count 4.53 10^3/uL (1.2-6.7); Basophils % 0.6 %; HCT 41.1 % (36.0-46.0); HGB 13.5 g/dL (11.2-15.7); Immature Grans % 0.2 %; Lymphocytes % 35.4 %; MCH 31.4 pg (27.0-33.0); MCHC 32.8 % (32.0-36.0); MCV 96 fL (80-95); MPV 11.6 fL (8.0-11.0); Monocytes % 7.3 %; Neutrophils % 55.5 %; Platelet Count 189 10^3/uL (130-400); RDW 12.8 % (11.7-14.6); RDW-SD 45.1 fL; WBC 8.17 10^3/uL (4.4-10.8)
[2023-10-11 17:41] LABS: Iron 51 ug/dL (50-170); Total Iron Binding Capacity 316 ug/dL (250-450); Transferrin Sat 16 % (15-50)
[2023-10-11 18:03] LABS: ALT 17 U/L (14-59); AST 11 U/L (15-37); Albumin 3.9 g/dL (3.4-5.0); Alkaline Phosphatase 51 U/L (46-116); Anion Gap 9.2 mmol/L (3-11); BUN 18 mg/dL (7-18); Bilirubin, Total 0.24 mg/dL (0.2-1.0); CO2 27.8 mmol/L (21.0-32.0); CREATININE 0.9 mg/dL (0.55-1.02); Calcium 8.8 mg/dL (8.5-10.1); Chloride 104 mmol/L (98-107); Estimated GFR 77.88 (mL/min/1.73m2); Ferritin 52 ng/mL (8-252); Glucose 76 mg/dL (74-106); Potassium 3.7 mmol/L (3.5-5.1); Sodium 141 mmol/L (136-145); TSH (W/Ref FT4) 2.16 uIU/mL (0.36-3.74); Total Protein 7.5 g/dL (6.4-8.2); Vitamin B12 871 pg/mL (193-986)
[2023-10-11 18:04] LABS: Folate > 20.0 ng/mL (8.6-20.0)
== END 2023-10-11 18:00 | disposition home or self-care (01) ==
LOC: LBO 18:03
PROVIDERS: PCP Nurse Practitioner Family; Visit Provider Family Medicine
DX: R42 Dizziness and giddiness (principal); L65.9 Nonscarring hair loss, unspecified
CPT/HCPCS: 36415; 80053; 82607; 82728; 82746; 83540; 83550; 83735; 84443; 85025

== ENCOUNTER 2024-07-16 10:45 | Outpatient (REF) | payer BC, SELFPAY ==
[2024-07-16 14:36] LABS: Abs Immature Grans 0.02 10^3/uL (0.0-0.06); Absolute Basophil Count 0.05 10^3/uL (0.0-0.2); Absolute Eosinophil Count 0.09 10^3/uL (0.0-0.7); Absolute Monocyte Count 0.53 10^3/uL (0.1-0.8); Absolute Neutrophil Count 3.96 10^3/uL (1.2-6.7); Basophils % 0.7 %; Eosinophils % 1.3 %; HCT 38.8 % (36.0-46.0); HGB 12.5 g/dL (11.2-15.7); Immature Grans % 0.3 %; MCHC 32.2 % (32.0-36.0); MCV 96 fL (80-95); Monocytes % 7.4 %; Neutrophils % 55.3 %; Platelet Count 152 10^3/uL (130-400); RBC 4.03 10^6/uL (3.93-5.22); RDW 12.8 % (11.7-14.6); RDW-SD 45.4 fL; WBC 7.15 10^3/uL (4.4-10.8)
[2024-07-16 15:07] LABS: C-Reactive Protein < 0.50 mg/dL (<or=0.5)
== END 2024-07-16 10:46 | disposition home or self-care (01) ==
LOC: NCHCN 10:45
PROVIDERS: PCP Nurse Practitioner Family; Visit Provider Family Medicine
DX: R14.0 Abdominal distension (gaseous) (principal)
CPT/HCPCS: 85025; 86140

== ENCOUNTER 2024-11-05 15:42 | Outpatient (REF) | payer BC, SELFPAY | END 2024-11-05 15:43 | disposition home or self-care (01) | LOC: NCHCN 15:42 | PROVIDERS: PCP Nurse Practitioner Family; Visit Provider Nurse Practitioner Family | DX: N89.8 Other specified noninflammatory disorders of vagina (principal) | CPT/HCPCS: 87480; 87510; 87660 ==

== ENCOUNTER 2024-11-25 14:52 | Outpatient (REF) | payer BC, SELFPAY ==
[2024-11-25 21:44] LABS: Calculated LDL 67 mg/dL (<100); Cholesterol 165 mg/dL (<200); HDL Cholesterol 65 mg/dL (>or=50); TSH (W/Ref FT4) 1.81 uIU/mL (0.36-3.74); Triglyceride 166 mg/dL (<150)
== END 2024-11-25 14:53 | disposition home or self-care (01) ==
LOC: NCHCN 14:52
PROVIDERS: PCP Nurse Practitioner Family; Visit Provider Family Medicine
DX: R00.1 Bradycardia, unspecified (principal); Z13.220 Encounter for screening for lipoid disorders
CPT/HCPCS: 80061; 84443

== ENCOUNTER 2024-12-05 04:53 | Outpatient (CLI) | payer BC, SELFPAY ==
--- NOTE | 2024-12-05 | DI.MAMMO_ITS ---
Exam(s) MAMMO SCREENING EXAM: MAMMO SCREENING CLINICAL HISTORY: SCREENING, Z12.31 TECHNIQUE: Mammograms were interpreted according to the usual protocol including computer analysis with CAD system, tomosynthesis and C-view imaging. COMPARISON: 2016 through 2022 FINDINGS: The breasts are composed of heterogeneously dense fibroglandular densities, Breast Density category C. No suspicious masses or suspicious microcalcifications are seen in either breast benign calcifications are again noted bilaterally. No skin thickening or abnormal axillary lymph nodes are seen. There has been no significant change in the right breast from prior exams. In the lower inner quadrant of the left breast, there is a question of an area of nodularity versus overlying fibroglandular tissue. Spot compression views and ultrasound are requested for further evaluation. IMPRESSION: Left breast: BI-RADS Category 0 - Incomplete: Need additional imaging evaluation Right breast: Yearly screening mammography is recommended. Breast Density: Category C - The breasts are heterogeneously dense, which may obscure small masses. Breast density Category C or D implies that the patient has dense breast tissue. Dense breast tissue can make it harder to find cancer on a mammogram. Dense breast tissue is also associated with an increased risk of breast cancer. This information about the result of the mammogram report was provided to the patient to raise their awareness. Use this report when you speak with the patient about their risks for breast cancer, which includes their family history. At that time, you may recommend additional screening tests (Ultrasound or MRI) as these tests may add significant information. A negative radiographic report should not delay biopsy if a dominant or clinically suspicious mass is present. Up to ten percent of cancers are not identified on mammography. A negative report may reinforce clinical impression. Adenosis and dense breasts may obscure an underlying neoplasm. False positive reports average 6 to 10%.
== END 2024-12-05 05:13 ==
PROVIDERS: PCP Nurse Practitioner Family; Visit Provider Family Medicine
DX: Z12.31 Encounter for screening mammogram for malignant neoplasm of breast (principal); R92.333 Mammographic heterogeneous density, bilateral breasts; R92.323 Mammographic fibroglandular density, bilateral breasts
CPT/HCPCS: 77063; 77067

== ENCOUNTER 2024-12-16 14:04 | Outpatient (REF) | payer BC, SELFPAY ==
--- NOTE | 2024-12-16 12:00 | PAPFT_PTH ---
PATIENT: Reena Joseph LOC: [facility] U#:[id number] AGE/SX: 49/F ROOM: RE12/16/[address]: Jackie Carlos : 1975 BED: DIS: 12/16/2024 SPEC #: [id number] RECD: 12/16/24 15:39 STATUS: MIGUELITO REJanae #: [id number] WINIFRED: 12/16/24 12:[address]: Jackie Carlos DEPT: [facility] Cytology RECD BY: Kaylen Gross ENTERED: 12/16/24 15:40 SP TYPE: PAPFT OTHR DR: Tanna Muñiz Tissues: 1 - CX/ENDOCX FOR PAP SMEARS Procedures: PAP THIN PREP/UVM Screening HPV DNA PROBE Comments: [id number] (HPV 16 & 18/45) (CHLAMYDIA/GC)
[2024-12-17 12:06] LABS: Chlamydia Result Negative (Negative); GC Result Negative (Negative)
== END 2024-12-16 14:05 | disposition home or self-care (01) ==
LOC: NCHCN 14:04
PROVIDERS: PCP Nurse Practitioner Family; Visit Provider Family Medicine
DX: N89.8 Other specified noninflammatory disorders of vagina (principal); Z12.4 Encounter for screening for malignant neoplasm of cervix
CPT/HCPCS: 87491; 87591; 88142; 87480; 87510; 87624; 87660

== ENCOUNTER 2024-12-17 01:30 | Outpatient (CLI) | payer BC, SELFPAY ==
--- NOTE | 2024-12-17 | DI.MAMMO_ITS ---
Exam(s) MG MAMMO SCREEN CALL BACK UNI US BREAST LT COMPLETE EXAM: MG MAMMO SCREEN CALL BACK UNI -LEFT AND COMPLETE LEFT BREAST ULTRASOUND CLINICAL HISTORY: F/U MAMMO, R92.8,? LT BREAST NODULARITY VS OVERLYING FIBROGLANDULAR TISSUE. TECHNIQUE: Unilateral LEFT BREAST spot mammographic images obtained with 3D tomosynthesisand utilizing computer aided detection (CAD). . Complete LEFT breast Ultrasound was also performed, including all 4 quadrants, the retroareolar region, and the ipsilateral axilla. COMPARISON: Prior mammograms were reviewed. This additional imaging was performed due to findings described on the recent screening mammogram of 12/05/2024. FINDINGS: DIAGNOSTIC MAMMOGRAM: Additional mammographic views performed todayare equivocal for the presence of a nodule. We proceeded with ultrasound COMPLETE LEFT BREAST ULTRASOUND: Ultrasound performed today reveals solitary finding which is a 3 mm benign microcysts at the 8 o'clock position. There are no solid lesions seen in all 4 quadrants of the left breast.. Scanning of the ipsilateral axilla reveals no significant adenopathy. IMPRESSION: 1. There is a 3 millimeter benign microcyst at the 8 o'clock position of the left breast seen on ultrasound. Appropriate follow-up as discussed by myself with the patient today is repeat left breast imaging in 6 months including repeat mammogram and ultrasound. The patient was informed of these findings and recommendations by myself prior to leaving the department today. BI-RADS Category 3 - 6 month - Probably Benign Finding: Recommend follow-up mammography in 6 months Breast Density - Category C - The breast are heterogeneously dense, which may obscure small masses. Breast density Category C or D implies that the patient has dense breast tissue. Dense breast tissue can make it harder to find cancer on a mammogram. Dense breast tissue is also associated with an increased risk of breast cancer. This information about the result of the mammogram report was provided to the patient to raise their awareness. Use this report when you speak with the patient about their risks for breast cancer, which includes their family history. At that time, you may recommend additional screening tests (Ultrasound or MRI) as these tests may add significant information. A negative radiographic report should not delay biopsy if a dominant or clinically suspicious mass is present. Up to ten percent of cancers are not identified on mammography. A negative report may reinforce clinical impression. Adenosis and dense breasts may obscure an underlying neoplasm. False positive reports average 6 to 10%. Patient will receive a letter notifying them of these results.
== END 2024-12-17 01:50 ==
PROVIDERS: PCP Nurse Practitioner Family; Visit Provider Family Medicine
DX: N89.8 Other specified noninflammatory disorders of vagina (principal); Z12.31 Encounter for screening mammogram for malignant neoplasm of breast; R92.8 Other abnormal and inconclusive findings on diagnostic imaging of breast; R92.323 Mammographic fibroglandular density, bilateral breasts
CPT/HCPCS: 76642; 77063; 77067